=== PATIENT | female | born 1930 | race Caucasian/White ===

== ENCOUNTER 2016-10-10 13:29 | Inpatient (IN) | payer MEDICARE ==
[2016-10-10] MEDS ORDERED: NALOXONE 0.4 MG/ML 10 ML VIAL IVP STA (13:35)
[2016-10-10] MEDS ORDERED: SODIUM CHLORIDE 0.9% 500 ML IV ONE (13:36)
--- NOTE | 2016-10-10 13:40 | ED ---
General Adult HPI - General Source: EMS, RN notes reviewed Mode of arrival: EMS Limitations: altered mental status <Hang Lewis - Last Filed: 10/10/16 19:03> <Hang Smith - Last Filed: 10/10/16 21:11> - General Chief complaint: Altered Mental Status Stated complaint: unresponsive Time Seen by Provider: 10/10/16 13:29 - History of Present Illness Initial comments: This is an 85-year-old female presents to the emergency department with altered mental status. According to EMS no one could identify as to when this occurred was unable to give any history and son just stopped by to see how his parents are doing and found the mom unable to respond to them. According to the son she was recently diagnosed with shingles and put on [place] and an antiviral medication. No other history is available at this time according to EMS the patient is unable to verbally respond to any questions and does not seem to understand even the simplest commands. Patient is awake but noncommunicative. No other history is available this time no family came with the patient at this time. (Hang Lewis) - Related Data Home Medications Medication Instructions Recorded Confirmed Fluticasone/Salmeterol [Advair 1 puff INHALATION RT-BID 12/19/14 10/10/16 500-50 Diskus] Ipratropium/Albuterol Sulfate 1 puff INHALATION RT-QID PRN 12/19/14 10/10/16 [Combivent Respimat Inhaler] Levothyroxine Sodium [Synthroid] 112 mcg PO DAILY 12/19/14 10/10/16 Montelukast [Singulair] 10 mg PO HS 12/19/14 10/10/16 amLODIPine/VALSARTAN [Exforge 1 tab PO DAILY 12/19/14 10/10/16 5-160 mg Tablet] Ascorbic Acid [Vitamin C] 500 mg PO DAILY 11/07/15 10/10/16 Vit A,C & E/Lutein/Minerals 1 tab PO DAILY 11/07/15 10/10/16 [Ocuvite with Lutein Tablet] Albuterol Nebulized [Ventolin 2.5 mg INHALATION RT-BID 09/12/16 10/10/16 Nebulized] Ca/D3/Mag#11/Zinc/Dry Chain Worker/Lee/Bor 1 tab PO DAILY 09/12/16 10/10/16 [Caltrate 600+D Plus Tablet] Cyanocobalamin [Vitamin B-12] 500 mcg PO DAILY 09/12/16 10/10/16 Fluticasone Nasal [place] [Flonase 1 spray EA NOSTRIL BID PRN 09/12/16 10/10/16 Nasal [place]] [place]-3 Fatty Acids/Fish Oil [Fish 1 cap PO DAILY 09/12/16 10/10/16 Oil 1,000 mg Softgel] Acyclovir [Zovirax] 800 mg PO 5XD 10/10/16 10/10/16 HYDROcodone/APAP 5-325MG [[place] 1 tab PO Q6HR PRN 10/10/16 10/10/16 5-325] Allergies Allergy/AdvReac Type Severity Reaction Status Date / Time Milk Containing Products Allergy Unknown Verified 10/10/16 16:22 [Dairy] wheat Allergy Unknown Verified 10/10/16 16:22 Review of Systems ROS Other: All systems not noted in ROS Statement are negative. <Hang Lewis - Last Filed: 10/10/16 19:03> ROS Other: All systems not noted in ROS Statement are negative. <Hang Smith - Last Filed: 10/10/16 21:11> ROS Statement: Those systems with pertinent positive or pertinent negative responses have been documented in the HPI. (Hang Lewis) (Hang Smith) Past Medical History Past Medical History: Asthma, COPD, Eye Disorder, Hypertension, Osteoarthritis ( OA), Sleep Apnea/CPAP/BIPAP Additional Past Medical History / Comment(s): HX CATARACTS. Sinus & Allergies. NOT USING CPAP. INCREASED COUGH, CHEST CONGESTION RECENTLY. History of Any Multi-Drug Resistant Organisms: None Reported Past Surgical History: Section, Joint Replacement Additional Past Surgical History / Comment(s): C-S X3. Thyroidectomy. Damir Knee Replacements, RT hip replaced. BRONCH X2. Past Anesthesia/Blood Transfusion Reactions: Motion Sickness, Postoperative Nausea & Vomiting (PONV) Additional Past Anesthesia/Blood Transfusion Reaction / Comment(s): severe PONV Past Psychological History: No Psychological Hx Reported Smoking Status: Never smoker Past Alcohol Use History: Occasional Past Drug Use History: None Reported - Past Family History Daughter(s) Family Medical History: Cancer <Hang Lewis - Last Filed: 10/10/16 19:03> General Exam Limitations: altered mental status <Hang Lewis - Last Filed: 10/10/16 19:03> Limitations: altered mental status General appearance: obtunded, in distress, obese, other (Diaphoretic) Head exam: Present: atraumatic, normocephalic, normal inspection Eye exam: Present: normal appearance, PERRL, EOMI. Absent: scleral icterus, conjunctival injection, periorbital swelling ENT exam: Present: normal exam, mucous membranes moist Neck exam: Present: normal inspection. Absent: tenderness, meningismus, lymphadenopathy Respiratory exam: Present: normal lung sounds bilaterally, decreased breath sounds. Absent: respiratory distress, wheezes, rales, rhonchi, stridor Cardiovascular Exam: Present: regular rate, normal rhythm, tachycardia, normal heart sounds. Absent: systolic murmur, diastolic murmur, rubs, gallop, clicks GI/Abdominal exam: Present: soft, normal bowel sounds. Absent: distended, tenderness, guarding, rebound, rigid Extremities exam: Present: normal inspection, full ROM, normal capillary refill. Absent: tenderness, pedal edema, joint swelling, calf tenderness Back exam: Present: normal inspection Neurological exam: Present: alert, oriented X3, CN II-XII intact Psychiatric exam: Present: normal affect, normal mood Skin exam: Present: warm, dry, intact, normal color. Absent: rash <Hang Smith - Last Filed: 10/10/16 21:11> - General Exam Comments Initial Comments: GENERAL: Patient is well-developed and well-nourished. Patient is nontoxic and well- hydrated and patient has no verbal response and does not follow even simple verbal commands there doesn't appear to be any understanding of questions. ENT: Neck is soft and supple. No significant lymphadenopathy is noted. Oropharynx is clear. Moist mucous membranes. Neck has full range of motion without eliciting any pain. EYES: The sclera were anicteric and conjunctiva were pink and moist. Extraocular movements were intact and pupils were equal round and reactive to light. Eyelids were unremarkable. PULMONARY: Unlabored respirations. Good breath sounds bilaterally. No audible rales rhonchi or wheezing was noted. CARDIOVASCULAR: There is a regular rate and rhythm without any murmurs gallops or rubs. ABDOMEN: Soft and nontender with normal bowel sounds. No palpable organomegaly was noted. There is no palpable pulsatile mass. SKIN: Skin is clear with no lesions or rashes and otherwise unremarkable. NEUROLOGIC: Patient is is awake but not oriented. Patient has no verbal response any questions patient follows no commands. Patient does appear to move all 4 extremities and extraocular motion does appear to be intact. No further neurologic exam could be done because the patient is not cooperative MUSCULOSKELETAL: Normal extremities with adequate strength and full range of motion. LYMPHATICS: No significant lymphadenopathy is noted PSYCHIATRIC: Unable to assess (Hang Lewis) Course <Hang Lewis - Last Filed: 10/10/16 19:03> <Hang Smith - Last Filed: 10/10/16 21:11> Vital Signs 10/10/16 10/10/16 10/10/16 13:30 13:47 14:40 Temperature 98.9 F Pulse Rate 72 98 93 Respiratory 20 20 18 Rate Blood Pressure 149/73 168/91 O2 Sat by Pulse 96 98 99 Oximetry 10/10/16 10/10/16 10/10/16 16:18 16:50 17:49 Temperature Pulse Rate 94 87 114 H Respiratory 18 22 18 Rate Blood Pressure 198/105 225/90 225/90 O2 Sat by Pulse 98 98 Oximetry 10/10/16 10/10/16 10/10/16 18:02 18:32 18:57 Temperature 101.2 F H Pulse Rate 119 H 118 H Respiratory 22 20 Rate Blood Pressure 138/65 140/62 O2 Sat by Pulse 97 98 Oximetry 10/10/16 10/10/16 19:35 20:49 Temperature 104.0 F H Pulse Rate 118 H Respiratory 20 Rate Blood Pressure 150/65 O2 Sat by Pulse 98 Oximetry (Hang Lewis) (Hang Smith) - Reevaluation(s) Reevaluation #1: 10/10/16 21:08 Patient reassessed and reevaluated, temperature trending upward despite antipyretics, now 104, will place on cooling blanket Patient is attempt at LP LP was attempted unsuccessfully by myself, patient currently will be on antiviral and anti-biotics prophylactically. Continue supportive therapy Patient remains DO NOT RESUSCITATE We'll still gets MRI and morning sickness availability for possible further intracranial disease (Hang Smith) Reevaluation #2: 10/10/16 21:09 We will recheck patient's labs, admit to ICU (Hang Smith) Medical Decision Making - Lab Data Result diagrams: 10/10/16 13:45 10/10/16 13:45 <Hang Lewis - Last Filed: 10/10/16 19:03> - Lab Data Result diagrams: 10/10/16 13:45 10/10/16 13:45 - Radiology Data Radiology results: report reviewed (CT brain is negative for acute disease), image reviewed <Hang Smith - Last Filed: 10/10/16 21:11> - Medical Decision Making EKG shows normal sinus rhythm at 90 bpm. It was 204 QRS is 80 QT intervals 374 QTC is 457. Patient's EKG shows no ST segment elevation or depression or T- wave abdomen is noted CT of the brain shows no acute normalities. Chest x-ray shows no acute normalities. After the patient was in the emergency department for approximate 5-1/2 hours the patient remained tachycardic I had the nurses do a rectal temperature the patient 101.2 fever at this point time I ordered blood cultures. I examined the patient's neck was not stiff but she still remained unresponsive. Family called me and to let me know that the patient was a DO NOT RESUSCITATE (Hang Lewis) 85 female date ER for evaluation. This patient is here for evaluation of altered mental status. Patient found to be altered with elevated fever. Nonresponsiveness or decreased level of responsiveness. Patient does respond to pain but no other significant involuntary movements. Patient does have unknown cause of fever, suspected cranial disease, patient is negative CAT scan , lumbar puncture was unsuccessful at this time. Per family patient never did complain of headache. Patient is unable to give history at this time. Urine and chest x-ray negative for infection, no skin or soft tissue infection noted, CK was negative for PE. Patient will be admitted to telemetry for continued neurologic monitoring, hemodynamic monitoring (Hang Smith) - Lab Data Lab Results 10/10/16 10/10/16 10/10/16 Range/Units 13:33 13:45 13:45 WBC 7.6 (3.8-10.6) k/uL RBC 4.52 (3.80-5.40) m/uL Hgb 13.2 (11.4-16.0) gm/dL Hct 39.3 (34.0-46.0) % MCV 86.8 (80.0-100.0) fL MCH 29.2 (25.0-35.0) pg MCHC 33.6 (31.0-37.0) g/dL RDW 13.2 (11.5-15.5) % Plt Count 193 (150-450) k/uL Neutrophils % 80 % Lymphocytes % 12 % Monocytes % 6 % Eosinophils % 0 % Basophils % 0 % Neutrophils # 6.0 (1.3-7.7) k/uL Lymphocytes # 0.9 L (1.0-4.8) k/uL Monocytes # 0.5 (0-1.0) k/uL Eosinophils # 0.0 (0-0.7) k/uL Basophils # 0.0 (0-0.2) k/uL PT (9.0-12.0) sec INR (<1.1) APTT (22.0-30.0) sec D-Dimer (<0.60) mg/L FEU Sample Site ABG pH (7.35-7.45) ABG pCO2 (35-45) mmHg ABG pO2 (83-108) mmHg ABG HCO3 (21-25) mmol/L ABG Total CO2 (19-24) mmol/L ABG O2 Saturation (94-97) % ABG Base Excess mmol/L FiO2 % Sodium (137-145) mmol/L Potassium (3.5-5.1) mmol/L Chloride (98-107) mmol/L Carbon Dioxide (22-30) mmol/L Anion Gap mmol/L BUN (7-17) mg/dL Creatinine (0.52-1.04) mg/dL Est GFR (MDRD) Af Amer (>60 ml/min/1.73 sqM) Est GFR (MDRD) Non-Af (>60 ml/min/1.73 sqM) Glucose (74-99) mg/dL POC Glucose (mg/dL) 129 H (75-99) mg/dL POC Glu Soaker Soda Worker ID BranchJose Calcium (8.4-10.2) mg/dL Total Bilirubin (0.2-1.3) mg/dL AST (14-36) U/L ALT (9-52) U/L Alkaline Phosphatase (38-126) U/L Total Creatine Kinase 85 (30-135) U/L CK-MB (CK-2) 1.9 (0.0-2.4) ng/mL CK-MB (CK-2) Rel Index 2.2 Troponin I <0.012 (0.000-0.034) ng/mL Total Protein (6.3-8.2) g/dL Albumin (3.5-5.0) g/dL Urine Color Urine Appearance (Clear) Urine pH (5.0-8.0) Ur Specific [place] (1.001-1.035) Urine Protein (Negative) Urine Glucose (UA) (Negative) Urine Ketones (Negative) Urine Blood (Negative) Urine Nitrate (Negative) Urine Bilirubin (Negative) Urine Urobilinogen (<2.0) mg/dL Ur Leukocyte Esterase (Negative) Urine WBC (0-5) /hpf Ur Squamous Epith Cells (0-4) /hpf Urine Mucus (None) /hpf Salicylates mg/dL Urine Opiates Screen (NotDetected) Ur Oxycodone Screen (NotDetected) Urine Methadone Screen (NotDetected) Ur Propoxyphene Screen (NotDetected) Acetaminophen ug/mL Ur Barbiturates Screen (NotDetected) U Tricyclic Antidepress (NotDetected) Ur Phencyclidine Scrn (NotDetected) Ur Amphetamines Screen (NotDetected) U Methamphetamines Scrn (NotDetected) U Benzodiazepines Scrn (NotDetected) Urine Cocaine Screen (NotDetected) U Marijuana (THC) Screen (NotDetected) 10/10/16 10/10/16 10/10/16 Range/Units 13:45 13:45 13:45 WBC (3.8-10.6) k/uL RBC (3.80-5.40) m/uL Hgb (11.4-16.0) gm/dL Hct (34.0-46.0) % MCV (80.0-100.0) fL MCH (25.0-35.0) pg MCHC (31.0-37.0) g/dL RDW (11.5-15.5) % Plt Count (150-450) k/uL Neutrophils % % Lymphocytes % % Monocytes % % Eosinophils % % Basophils % % Neutrophils # (1.3-7.7) k/uL Lymphocytes # (1.0-4.8) k/uL Monocytes # (0-1.0) k/uL Eosinophils # (0-0.7) k/uL Basophils # (0-0.2) k/uL PT 10.8 (9.0-12.0) sec INR 1.1 (<1.1) APTT 27.9 (22.0-30.0) sec D-Dimer (<0.60) mg/L FEU Sample Site ABG pH (7.35-7.45) ABG pCO2 (35-45) mmHg ABG pO2 (83-108) mmHg ABG HCO3 (21-25) mmol/L ABG Total CO2 (19-24) mmol/L ABG O2 Saturation (94-97) % ABG Base Excess mmol/L FiO2 % Sodium 122 L (137-145) mmol/L Potassium 3.7 (3.5-5.1) mmol/L Chloride 89 L (98-107) mmol/L Carbon Dioxide 23 (22-30) mmol/L Anion Gap 10 mmol/L BUN 9 (7-17) mg/dL Creatinine 0.50 L (0.52-1.04) mg/dL Est GFR (MDRD) Af Amer >60 (>60 ml/min/1.73 sqM) Est GFR (MDRD) Non-Af >60 (>60 ml/min/1.73 sqM) Glucose 123 H (74-99) mg/dL POC Glucose (mg/dL) (75-99) mg/dL POC Glu Soaker Soda Worker ID Calcium 8.4 (8.4-10.2) mg/dL Total Bilirubin 0.6 (0.2-1.3) mg/dL AST 29 (14-36) U/L ALT 29 (9-52) U/L Alkaline Phosphatase 69 (38-126) U/L Total Creatine Kinase (30-135) U/L CK-MB (CK-2) (0.0-2.4) ng/mL CK-MB (CK-2) Rel Index Troponin I (0.000-0.034) ng/mL Total Protein 7.4 (6.3-8.2) g/dL Albumin 4.1 (3.5-5.0) g/dL Urine Color Urine Appearance (Clear) Urine pH (5.0-8.0) Ur Specific [place] (1.001-1.035) Urine Protein (Negative) Urine Glucose (UA) (Negative) Urine Ketones (Negative) Urine Blood (Negative) Urine Nitrate (Negative) Urine Bilirubin (Negative) Urine Urobilinogen (<2.0) mg/dL Ur Leukocyte Esterase (Negative) Urine WBC (0-5) /hpf Ur Squamous Epith Cells (0-4) /hpf Urine Mucus (None) /hpf Salicylates mg/dL Urine Opiates Screen Detected H (NotDetected) Ur Oxycodone Screen Not Detected (NotDetected) Urine Methadone Screen Not Detected (NotDetected) Ur Propoxyphene Screen Not Detected (NotDetected) Acetaminophen ug/mL Ur Barbiturates Screen Not Detected (NotDetected) U Tricyclic Antidepress Not Detected (NotDetected) Ur Phencyclidine Scrn Not Detected (NotDetected) Ur Amphetamines Screen Not Detected (NotDetected) U Methamphetamines Scrn Not Detected (NotDetected) U Benzodiazepines Scrn Not Detected (NotDetected) Urine Cocaine Screen Not Detected (NotDetected) U Marijuana (THC) Screen Not Detected (NotDetected) 10/10/16 10/10/16 10/10/16 Range/Units 13:45 13:45 13:45 WBC (3.8-10.6) k/uL RBC (3.80-5.40) m/uL Hgb (11.4-16.0) gm/dL Hct (34.0-46.0) % MCV (80.0-100.0) fL MCH (25.0-35.0) pg MCHC (31.0-37.0) g/dL RDW (11.5-15.5) % Plt Count (150-450) k/uL Neutrophils % % Lymphocytes % % Monocytes % % Eosinophils % % Basophils % % Neutrophils # (1.3-7.7) k/uL Lymphocytes # (1.0-4.8) k/uL Monocytes # (0-1.0) k/uL Eosinophils # (0-0.7) k/uL Basophils # (0-0.2) k/uL PT (9.0-12.0) sec INR (<1.1) APTT (22.0-30.0) sec D-Dimer 1.29 H (<0.60) mg/L FEU Sample Site ABG pH (7.35-7.45) ABG pCO2 (35-45) mmHg ABG pO2 (83-108) mmHg ABG HCO3 (21-25) mmol/L ABG Total CO2 (19-24) mmol/L ABG O2 Saturation (94-97) % ABG Base Excess mmol/L FiO2 % Sodium (137-145) mmol/L Potassium (3.5-5.1) mmol/L Chloride (98-107) mmol/L Carbon Dioxide (22-30) mmol/L Anion Gap mmol/L BUN (7-17) mg/dL Creatinine (0.52-1.04) mg/dL Est GFR (MDRD) Af Amer (>60 ml/min/1.73 sqM) Est GFR (MDRD) Non-Af (>60 ml/min/1.73 sqM) Glucose (74-99) mg/dL POC Glucose (mg/dL) (75-99) mg/dL POC Glu Soaker Soda Worker ID Calcium (8.4-10.2) mg/dL Total Bilirubin (0.2-1.3) mg/dL AST (14-36) U/L ALT (9-52) U/L Alkaline Phosphatase (38-126) U/L Total Creatine Kinase (30-135) U/L CK-MB (CK-2) (0.0-2.4) ng/mL CK-MB (CK-2) Rel Index Troponin I (0.000-0.034) ng/mL Total Protein (6.3-8.2) g/dL Albumin (3.5-5.0) g/dL Urine Color Yellow Urine Appearance Clear (Clear) Urine pH 7.0 (5.0-8.0) Ur Specific [place] 1.013 (1.001-1.035) Urine Protein 2+ H (Negative) Urine Glucose (UA) Negative (Negative) Urine Ketones 2+ H (Negative) Urine Blood Negative (Negative) Urine Nitrate Negative (Negative) Urine Bilirubin Negative (Negative) Urine Urobilinogen <2.0 (<2.0) mg/dL Ur Leukocyte Esterase Negative (Negative) Urine WBC 1 (0-5) /hpf Ur Squamous Epith Cells <1 (0-4) /hpf Urine Mucus Rare H (None) /hpf Salicylates <1.0 mg/dL Urine Opiates Screen (NotDetected) Ur Oxycodone Screen (NotDetected) Urine Methadone Screen (NotDetected) Ur Propoxyphene Screen (NotDetected) Acetaminophen <10.0 ug/mL Ur Barbiturates Screen (NotDetected) U Tricyclic Antidepress (NotDetected) Ur Phencyclidine Scrn (NotDetected) Ur Amphetamines Screen (NotDetected) U Methamphetamines Scrn (NotDetected) U Benzodiazepines Scrn (NotDetected) Urine Cocaine Screen (NotDetected) U Marijuana (THC) Screen (NotDetected) 10/10/16 Range/Units 17:01 WBC (3.8-10.6) k/uL RBC (3.80-5.40) m/uL Hgb (11.4-16.0) gm/dL Hct (34.0-46.0) % MCV (80.0-100.0) fL MCH (25.0-35.0) pg MCHC (31.0-37.0) g/dL RDW (11.5-15.5) % Plt Count (150-450) k/uL Neutrophils % % Lymphocytes % % Monocytes % % Eosinophils % % Basophils % % Neutrophils # (1.3-7.7) k/uL Lymphocytes # (1.0-4.8) k/uL Monocytes # (0-1.0) k/uL Eosinophils # (0-0.7) k/uL Basophils # (0-0.2) k/uL PT (9.0-12.0) sec INR (<1.1) APTT (22.0-30.0) sec D-Dimer (<0.60) mg/L FEU Sample Site RRAD ABG pH 7.51 H (7.35-7.45) ABG pCO2 22 L (35-45) mmHg ABG pO2 103 (83-108) mmHg ABG HCO3 18 L (21-25) mmol/L ABG Total CO2 18 L (19-24) mmol/L ABG O2 Saturation 99.0 H (94-97) % ABG Base Excess -4.9 mmol/L FiO2 28 % Sodium (137-145) mmol/L Potassium (3.5-5.1) mmol/L Chloride (98-107) mmol/L Carbon Dioxide (22-30) mmol/L Anion Gap mmol/L BUN (7-17) mg/dL Creatinine (0.52-1.04) mg/dL Est GFR (MDRD) Af Amer (>60 ml/min/1.73 sqM) Est GFR (MDRD) Non-Af (>60 ml/min/1.73 sqM) Glucose (74-99) mg/dL POC Glucose (mg/dL) (75-99) mg/dL POC Glu Soaker Soda Worker ID Calcium (8.4-10.2) mg/dL Total Bilirubin (0.2-1.3) mg/dL AST (14-36) U/L ALT (9-52) U/L Alkaline Phosphatase (38-126) U/L Total Creatine Kinase (30-135) U/L CK-MB (CK-2) (0.0-2.4) ng/mL CK-MB (CK-2) Rel Index Troponin I (0.000-0.034) ng/mL Total Protein (6.3-8.2) g/dL Albumin (3.5-5.0) g/dL Urine Color Urine Appearance (Clear) Urine pH (5.0-8.0) Ur Specific [place] (1.001-1.035) Urine Protein (Negative) Urine Glucose (UA) (Negative) Urine Ketones (Negative) Urine Blood (Negative) Urine Nitrate (Negative) Urine Bilirubin (Negative) Urine Urobilinogen (<2.0) mg/dL Ur Leukocyte Esterase (Negative) Urine WBC (0-5) /hpf Ur Squamous Epith Cells (0-4) /hpf Urine Mucus (None) /hpf Salicylates mg/dL Urine Opiates Screen (NotDetected) Ur Oxycodone Screen (NotDetected) Urine Methadone Screen (NotDetected) Ur Propoxyphene Screen (NotDetected) Acetaminophen ug/mL Ur Barbiturates Screen (NotDetected) U Tricyclic Antidepress (NotDetected) Ur Phencyclidine Scrn (NotDetected) Ur Amphetamines Screen (NotDetected) U Methamphetamines Scrn (NotDetected) U Benzodiazepines Scrn (NotDetected) Urine Cocaine Screen (NotDetected) U Marijuana (THC) Screen (NotDetected) (Hang Smith) Critical Care Time Critical Care Time: Yes Total Critical Care Time: 65 <Hang Smith - Last Filed: 10/10/16 21:11> Disposition <Hang Lewis - Last Filed: 10/10/16 19:03> <Hang Smith - Last Filed: 10/10/16 21:11> Clinical Impression: Altered mental status, Fever, Delirium due to general medical condition, Hyponatremia Disposition: [facility] Condition: Critical Referrals: Hipolito Wallace MD [Primary Care Provider] - 1-2 days
[2016-10-10 13:57] LABS: Basophils % (A) 0 %; CH 31.3; CHCM 36.2; Eosinophils % (A) 0 %; HCT 39.3 % (34.0-46.0); HDW 2.36; HGB 13.2 gm/dL (11.4-16.0); Luc # (Auto) 0.08; Luc % (Auto) 1; Lymphocytes # (A) 0.9 k/uL (1.0-4.8); Lymphocytes % (A) 12 %; MCH 29.2 pg (25.0-35.0); MCHC 33.6 g/dL (31.0-37.0); MCV 86.8 fL (80.0-100.0); Mean Platelet Volume 10.3; Monocytes # (A) 0.5 k/uL (0-1.0); Monocytes % (A) 6 %; Neutrophils % (A) 80 %; RBC 4.52 m/uL (3.80-5.40); RDW 13.2 % (11.5-15.5); WBC 7.6 k/uL (3.8-10.6); WBC (Perox) 8.16
[2016-10-10 14:11] LABS: INR 1.1 (<1.1); Partial Thromboplastin Time 27.9 sec (22.0-30.0); Prothrombin Time 10.8 sec (9.0-12.0)
[2016-10-10 14:12] LABS: Anion Gap 10 mmol/L; Blood Urea Nitrogen 9 mg/dL (7-17); Calcium 8.4 mg/dL (8.4-10.2); Carbon Dioxide 23 mmol/L (22-30); Chloride 89 mmol/L (98-107); Glucose 123 mg/dL (74-99); Non-African American GFR(MDRD) >60 (>60 ml/min/1.73 sqM); Potassium 3.7 mmol/L (3.5-5.1); Sodium 122 mmol/L (137-145); Total Protein 7.4 g/dL (6.3-8.2)
[2016-10-10 14:15] LABS: ALT 29 U/L (9-52); AST 29 U/L (14-36); Alkaline Phosphatase 69 U/L (38-126); Total Bilirubin 0.6 mg/dL (0.2-1.3)
[2016-10-10 14:23] LABS: Creatine Kinase 85 U/L (30-135)
--- NOTE | 2016-10-10 14:25 | CT ---
EXAMINATION TYPE: CT brain wo con DATE OF EXAM: 10/10/2016 2:10 PM COMPARISON: NONE INDICATION: Patient is agitated, moving and not responding to verbal commands DLP: 2213.2 mGycm, Automated exposure control for dose reduction was used. CONTRAST: None CT of the brain is performed utilizing 3 mm thick sections through the posterior fossa and 3 mm thick sections through the remaining calvarium. Study is performed within 24 hours of arrival to the hosp ital. No abnormal hyperdensity is present to suggest an acute intracranial hemorrhage. No mass lesion is evident. No acute infarcts are evident. Periventricular chronic appearing white matter ischemic changes are pr esent Ventricles and sulci are mildly prominent for the patient age. Paranasal sinuses and mastoid air cells within the [id number] are clear. IMPRESSIONS: 1. Periventricular white matter ischemic type changes with age-related atrophy.
[2016-10-10 14:36] LABS: Creatine Kinase MB 1.9 ng/mL (0.0-2.4); Troponin I <0.012 ng/mL (0.000-0.034)
[2016-10-10 14:54] LABS: Appearance,Urine Clear (Clear); Bilirubin,Urine Negative (Negative); Glucose,Urine (UA) Negative (Negative); Ketones,Urine 2+ (Negative); Leukocyte Esterase,Urine Negative (Negative); Mucus,Urine Rare /hpf; Nitrite,Urine Negative (Negative); Particle Count 1676; Protein,Urine 2+ (Negative); Specific Gravity,Urine 1.013 (1.001-1.035); Squamous Epithelial Cell,Urine <1 /hpf (0-4); UA Billing (MACRO vs. MICRO) MICRO; Urobilinogen,Urine <2.0 mg/dL (<2.0); WBC,Urine 1 /hpf (0-5)
[2016-10-10 15:24] LABS: Glucose,Whole Blood 129 mg/dL (75-99)
--- NOTE | 2016-10-10 15:54 | XR ---
EXAMINATION TYPE: XR chest 1V DATE OF EXAM: 10/10/2016 3:43 PM COMPARISON: 09/12/2016 HISTORY: 85 year-old female altered mental status, unable to follow directions TECHNIQUE: Single frontal supine view of the chest is obtained. FINDINGS: Heart is borderline to mildly enlarged. Diffuse interstitial prominence similar to prior. Some hazy d ensity at the left base could represent a trace layering effusion. No tk consolidation seen. IMPRESSION: Borderline cardiomegaly and chronic changes. There may be a trace left pleural effusion.
[2016-10-10] MEDS ORDERED: hydrALAZINE HCL 20 MG/ML 1 ML VIAL IVP STA ×2 (16:10→17:16)
[2016-10-10] MEDS ORDERED: RX INFO: IV CONTRAST WAS GIVEN 1 EACH MISC MISCELLANE PRN (17:20)
[2016-10-10] MEDS ORDERED: HYDROmorphone 1 MG/ML 1 ML SYRINGE IVP STA (17:46)
[2016-10-10] MEDS ORDERED: ONDANSETRON 4 MG/2 ML VIAL IVP STA (17:46)
[2016-10-10 17:56] LABS: ABG PCO2 22 mmHg (35-45); ABG PH 7.51 (7.35-7.45)
[2016-10-10 17:57] LABS: ABG Base Excess -4.9 mmol/L; ABG HCO3 18 mmol/L (21-25); ABG PO2 103 mmHg (83-108); ABG TCO2 18 mmol/L (19-24)
--- NOTE | 2016-10-10 18:42 | CT ---
EXAMINATION TYPE: CT chest angio for PE DATE OF EXAM: 10/10/2016 6:13 PM COMPARISON: NONE HISTORY: Unrespsonive. CT DLP: 557 mGycm Automated exposure control for dose reduction was used. CONTRAST: CT Chest for pulmonary embolism performed with with IV Contrast, patient injected with 80 mL of Omnip aque 350. FINDINGS: There are 3-D post processed images. There is normal contrast opacification of the thoracic aorta. There is no evidence of dissection. Asc ending aorta measures 3.7 cm. There is coronary artery calcification. There is no pericardial effusio n. There is a hiatal hernia. I see no filling defects in the pulmonary arteries. There is no evidence of a pulmonary mass. There i s some mild atelectasis at the left lung base. There is no pleural effusion. There is no mediastinal adenopathy. IMPRESSION: No evidence of pulmonary embolism. Atherosclerotic vascular disease. Mild ectasia of the ascending ao rta that measures 3.7 cm. Minimal atelectasis at the left lung base. Hiatal hernia.
[2016-10-10] MEDS ORDERED: ACETAMINOPHEN IV (For NPO) 1,000 MG in SALINE 100 100ML.BAG IVPB STA (18:57)
[2016-10-10] MEDS ORDERED: IBUPROFEN IV 600 MG in SODIUM CHLORIDE 0.9% 250 ML IV STA (18:57)
[2016-10-10] MEDS ORDERED: cefTRIAXone 2,000 MG in SODIUM CHLORIDE 0.9% 100 ML IVPB STA (19:33)
[2016-10-10] MEDS ORDERED: IV VANCOMYCIN PER PHARMACY 1 EACH MISC MISCELLANE PRN ×2 (19:33→21:11)
[2016-10-10] MEDS ORDERED: SODIUM CHLORIDE 0.9% 500 ML IV STA (19:34)
[2016-10-10] MEDS ORDERED: SODIUM CHLORIDE 0.9% 1,000 ML IV STA ×2 (19:34)
[2016-10-10] MEDS ORDERED: VANCOMYCIN 1,250 MG in SODIUM CHLORIDE 0.9% 250 ML IVPB STA (19:37)
[2016-10-10 20:05] LABS: Acetaminophen <10.0 ug/mL; Salicylate <1.0 mg/dL
[2016-10-10] MEDS ORDERED: ACETAMINOPHEN IV (For NPO) 1,000 MG in EMPTY BAG 1 BAG IVPB PRN (21:14)
[2016-10-10 21:27] LABS: Basophils % (A) 0 %; CH 31.1; CHCM 35.1; Eosinophils % (A) 0 %; HCT 38.1 % (34.0-46.0); HDW 2.35; HGB 12.5 gm/dL (11.4-16.0); Luc # (Auto) 0.12; Luc % (Auto) 1; Lymphocytes # (A) 0.7 k/uL (1.0-4.8); Lymphocytes % (A) 6 %; MCH 29.1 pg (25.0-35.0); MCHC 32.7 g/dL (31.0-37.0); MCV 88.9 fL (80.0-100.0); Mean Platelet Volume 9.5; Monocytes # (A) 0.6 k/uL (0-1.0); Monocytes % (A) 5 %; Neutrophils # (A) 10.9 k/uL (1.3-7.7); Neutrophils % (A) 88 %; RBC 4.28 m/uL (3.80-5.40); RDW 13.7 % (11.5-15.5); WBC 12.4 k/uL (3.8-10.6); WBC (Perox) 13.62
[2016-10-10 21:28] LABS: VBG PH 7.37 (7.31-7.41)
[2016-10-10 21:36] LABS: INR 1.1 (<1.1); Partial Thromboplastin Time 25.3 sec (22.0-30.0); Prothrombin Time 11.1 sec (9.0-12.0)
[2016-10-10 21:38] LABS: ALT 31 U/L (9-52); AST 31 U/L (14-36); Alkaline Phosphatase 55 U/L (38-126); Anion Gap 11 mmol/L; Blood Urea Nitrogen 11 mg/dL (7-17); Calcium 7.7 mg/dL (8.4-10.2); Carbon Dioxide 18 mmol/L (22-30); Chloride 94 mmol/L (98-107); Glucose 139 mg/dL (74-99); Magnesium 1.5 mg/dL (1.6-2.3); Non-African American GFR(MDRD) >60 (>60 ml/min/1.73 sqM); Phosphorous 2.8 mg/dL (2.5-4.5); Potassium 4.4 mmol/L (3.5-5.1); Sodium 123 mmol/L (137-145); Total Bilirubin 0.5 mg/dL (0.2-1.3); Total Protein 6.7 g/dL (6.3-8.2)
[2016-10-10 21:57] LABS: Creatine Kinase MB 2.4 ng/mL (0.0-2.4)
[2016-10-10 22:03] LABS: Troponin I 0.052 ng/mL (0.000-0.034)
[2016-10-10] MEDS: SODIUM CHLORIDE 0.9% 1,000 ML IV SCH (22:25)
[2016-10-10 22:31] LABS: Glucose,Whole Blood 123 mg/dL (75-99)
[2016-10-11] MEDS: SODIUM CHLORIDE 0.9% IV SCH ×3 (00:31→16:04)
[2016-10-11] MEDS: ACYCLOVIR SODIUM IV SCH ×3 (00:31→16:04)
[2016-10-11 01:17] VITALS: BMI 31.4
[2016-10-11] MEDS ORDERED: NALOXONE 0.4 MG/ML 1 ML VIAL IV PRN (02:42)
[2016-10-11] MEDS ORDERED: Magnesium Replacement Protocol 1 EACH MISC MISCELLANE PRN (02:46)
[2016-10-11] MEDS ORDERED: HYDROmorphone 1 MG/ML 1 ML SYRINGE IVP PRN (02:47)
[2016-10-11] MEDS ORDERED: LORazepam 2 MG/ML SYRINGE IV PRN ×2 (02:47)
[2016-10-11] MEDS ORDERED: hydrALAZINE HCL 20 MG/ML 1 ML VIAL IVP PRN (02:47)
[2016-10-11] MEDS ORDERED: IPRATROPIUM 0.5 MG/2.5 ML NEBU INHALATION PRN ×2 (02:47→02:54)
[2016-10-11] MEDS ORDERED: LEVALBUTEROL NEB (CONC) 1.25 MG/0.5 ML AMP INHALATION PRN (02:52)
[2016-10-11 03:18] LABS: Creatine Kinase MB 6.1 ng/mL (0.0-2.4); Troponin I 0.119 ng/mL (0.000-0.034)
[2016-10-11] MEDS: MAGNESIUM SULFATE-D5W PMX 1 GM in DEXTROSE/WATER 1 100ML.BAG IVPB SCH ×2 (04:25→05:25)
[2016-10-11 04:29] LABS: Glucose,Whole Blood 116 mg/dL (75-99)
[2016-10-11] MEDS ORDERED: MIDAZOLAM 2 MG/2 ML VIAL ONE (06:16)
[2016-10-11] MEDS ORDERED: HYDROmorphone 1 MG/ML 1 ML SYRINGE IVP STA (06:20)
[2016-10-11] MEDS ORDERED: MIDAZOLAM 2 MG/2 ML VIAL IV ONE (06:24)
--- NOTE | 2016-10-11 06:57 | P.CON ---
Consult Note - . Assessment/Plan:: diagnostic lumbar puncture performed at lumbar three-four level with sterile precautions; lidocaine infiltration of the skin performed; clear csf obtained; patient tolerated the procedure well; verse and dilaudid given for sedation; diagnosis rule out meningitis
[2016-10-11 07:25] LABS: Anion Gap 8 mmol/L; Blood Urea Nitrogen 10 mg/dL (7-17); Calcium 7.1 mg/dL (8.4-10.2); Carbon Dioxide 19 mmol/L (22-30); Chloride 100 mmol/L (98-107); Glucose 125 mg/dL (74-99); Non-African American GFR(MDRD) >60 (>60 ml/min/1.73 sqM); Phosphorous 2.6 mg/dL (2.5-4.5); Potassium 3.8 mmol/L (3.5-5.1); Sodium 127 mmol/L (137-145)
[2016-10-11 07:30] LABS: Basophils % (A) 0 %; CH 30.1; CHCM 33.6; Eosinophils % (A) 0 %; HCT 34.3 % (34.0-46.0); HDW 2.26; HGB 11.3 gm/dL (11.4-16.0); Luc # (Auto) 0.28; Luc % (Auto) 3; Lymphocytes # (A) 1.1 k/uL (1.0-4.8); Lymphocytes % (A) 11 %; MCH 29.8 pg (25.0-35.0); MCHC 33.1 g/dL (31.0-37.0); Monocytes % (A) 10 %; Neutrophils # (A) 7.7 k/uL (1.3-7.7); Neutrophils % (A) 76 %; RBC 3.81 m/uL (3.80-5.40); RDW 13.7 % (11.5-15.5); WBC 10.1 k/uL (3.8-10.6); WBC (Perox) 11.12
[2016-10-11 07:56] LABS: Glucose,CSF 80 mg/dL (40-70)
[2016-10-11] MEDS ORDERED: IPRATROPIUM 0.5 MG/2.5 ML NEBU INHALATION SCH (08:00)
[2016-10-11 08:24] LABS: Appearance,CSF Clear; Red Blood Cell, CSF Crenated 2 %; Red Blood Cell, CSF Fresh 98 %
[2016-10-11] MEDS: SODIUM CHLORIDE 0.9% 1,000 ML IV SCH (08:57)
[2016-10-11] MEDS ORDERED: cefTRIAXone 2,000 MG in SODIUM CHLORIDE 0.9% 100 ML IVPB SCH (09:00)
[2016-10-11] MEDS: LEVALBUTEROL NEB (CONC) 1.25 MG/0.5 ML AMP INHALATION SCH ×3 (09:26→19:45)
[2016-10-11] MEDS: IPRATROPIUM 0.5 MG/2.5 ML NEBU INHALATION SCH ×3 (09:27→19:45)
[2016-10-11] MEDS: VANCOMYCIN 1,250 MG in SODIUM CHLORIDE 0.9% 250 ML IVPB SCH (09:52)
[2016-10-11 09:53] LABS: Creatine Kinase MB 9.5 ng/mL (0.0-2.4); Troponin I 0.069 ng/mL (0.000-0.034)
[2016-10-11] MEDS: LEVOTHYROXINE IVP 100 MCG/5 ML VIAL IV SCH (09:59)
[2016-10-11] MEDS: PANTOPRAZOLE 40 MG/10 ML VIAL IV SCH (10:02)
[2016-10-11] MEDS ORDERED: ONDANSETRON 4 MG/2 ML VIAL IVP PRN (11:02)
--- NOTE | 2016-10-11 12:00 | MR ---
EXAMINATION TYPE: MR brain wo/w con DATE OF EXAM: 10/11/2016 11:43 AM COMPARISON: CT brain from yesterday. HISTORY: Altered mental status TECHNIQUE: Multiplanar, multisequence images of the brain and brainstem is performed without and with IV contras t, utilizing 15 mL intravenous MultiHance . FINDINGS: Exam is suboptimal due to patient motion related to underlying confusion. Diffusion weighte d images demonstrate no evidence of a recent infarct or other diffusion abnormality. There is no wor risome extra-axial fluid collections. There is ventricular and sulcal prominence consistent with diff use cerebral atrophy. There are focal areas of T2 hyperintensity seen throughout the deep and periven tricular white matter. Lesions are presumed on basis of product of chronic small vessel ischemic culver ge in patient this age. Midline structures demonstrate normal morphology. The craniocervical junction appears within normal limits. Post contrast images demonstrate no abnormal enhancement. The dural venous sinuses appear pa tent. The visualized sinuses are clear and the globes are intact. IMPRESSION: 1. No convincing evidence of a clinically significant acute infarct. 2. Redemonstration of mild to moderate diffuse cerebral atrophy and moderate chronic small vessel isc hemic change.
--- NOTE | 2016-10-11 12:46 | P.CNPUL ---
History of Present Illness Consult date: 10/11/16 Requesting physician: Catalina Nava Reason for consult: other (ICU management) Chief complaint: Altered mental status and fever History of present illness: This is an 85-year-old female with history of multiple medical problems including essential hypertension, COPD, degenerative joint disease, obstructive sleep apnea syndrome, patient was brought into the emergency room by EMS because of her family concern. Apparently the son stopped by to see his parents and he noted that his mom was unable to respond to him. She was recently diagnosed as having shingles involving her left chest area and she was placed on acyclovir, she was also on [place]. At any rate the patient was evaluated in the ER, she was definitely confused, noncommunicative, and she had elevated temp, but she had a relatively normal CBC, she had a low sodium of 122. There was a definite concern about the possibility of viral encephalitis specially with her most recent history of herpes zoster infection. The ER physician attempted to perform a lumbar puncture, however he was not successful. Patient was then admitted to the hospital placed on empiric treatment for viral and bacterial encephalitis/meningitis, infectious disease consultation was initiated, and I was asked to see the patient on consultation since she was admitted to the ICU. Upon my evaluation, patient was noted to be quite responsive, oriented to place, but not to time and year. Her sodium corrected a bit from 122 up to 127. She had no evidence of anion gap, and her lactic acidosis was 2.0 on admission, and corrected down to 0.9 overnight. Workup in the ER included a CT of the chest which was negative for pulmonary embolism. Chest x-ray which was normal. Brain CT which was also normal. MRI of the brain was also done and there was no convincing evidence of acute infarct , or any suggestion of encephalitis/meningitis. I reviewed the results of her spinal fluid, and it seemed to be relatively normal except for slightly elevated protein otherwise the spinal fluid was clear. Hence I have made arrangements for the patient to be transferred out of the ICU and infectious disease to follow. In the meantime we'll continue to correct her hyponatremia which seems to be most likely hypovolemic in nature. Review of Systems ROS unobtainable: due to mental status Past Medical History Past Medical History: Asthma, COPD, Eye Disorder, Hypertension, Osteoarthritis ( OA), Sleep Apnea/CPAP/BIPAP Additional Past Medical History / Comment(s): HX CATARACTS (removed), macular degeneration. Sinus & Allergies. uses while in bed but gets up niughtly d/t pain in knees & hips and sleps in recliner w/out. INCREASED COUGH, CHEST CONGESTION RECENTLY. History of Any Multi-Drug Resistant Organisms: None Reported Past Surgical History: Section, Joint Replacement Additional Past Surgical History / Comment(s): X3. Thyroidectomy. Damir Knee Replacements, RT hip replaced. BRONCH X2. Past Anesthesia/Blood Transfusion Reactions: Motion Sickness, Postoperative Nausea & Vomiting (PONV) Additional Past Anesthesia/Blood Transfusion Reaction / Comment(s): severe PONV Past Psychological History: No Psychological Hx Reported Smoking Status: Never smoker Past Alcohol Use History: Occasional Additional Past Alcohol Use History / Comment(s): about 1 glass of wine per month Past Drug Use History: None Reported - Past Family History Daughter(s) Family Medical History: Cancer Additional Family Medical History / Comment(s): uterine Mother Family Medical History: Hypertension, Osteoarthritis (OA) Additional Family Medical History / Comment(s): of multiple myeloma at 73 Father Family Medical History: Cancer Additional Family Medical History / Comment(s): of lung ca, mesothelioma d/ t asbestos Medications and Allergies Home Medications Medication Instructions Recorded Confirmed Type Fluticasone/Salmeterol [Advair 1 puff INHALATION RT-BID 12/19/14 10/10/16 History 500-50 Diskus] Ipratropium/Albuterol Sulfate 1 puff INHALATION RT-QID PRN 12/19/14 10/10/16 History [Combivent Respimat Inhaler] Levothyroxine Sodium [Synthroid] 112 mcg PO DAILY 12/19/14 10/10/16 History Montelukast [Singulair] 10 mg PO HS 12/19/14 10/10/16 History amLODIPine/VALSARTAN [Exforge 1 tab PO DAILY 12/19/14 10/10/16 History 5-160 mg Tablet] Ascorbic Acid [Vitamin C] 500 mg PO DAILY 11/07/15 10/10/16 History Vit A,C & E/Lutein/Minerals 1 tab PO DAILY 11/07/15 10/10/16 History [Ocuvite with Lutein Tablet] Albuterol Nebulized [Ventolin 2.5 mg INHALATION RT-BID 09/12/16 10/10/16 History Nebulized] Ca/D3/Mag#11/Zinc/Bulb Weeder/Lee/Bor 1 tab PO DAILY 09/12/16 10/10/16 History [Caltrate 600+D Plus Tablet] Cyanocobalamin [Vitamin B-12] 500 mcg PO DAILY 09/12/16 10/10/16 History Fluticasone Nasal [place] [Flonase 1 spray EA NOSTRIL BID PRN 09/12/16 10/10/16 History Nasal [place]] [place]-3 Fatty Acids/Fish Oil [Fish 1 cap PO DAILY 09/12/16 10/10/16 History Oil 1,000 mg Softgel] Acyclovir [Zovirax] 800 mg PO 5XD 10/10/16 10/10/16 History HYDROcodone/APAP 5-325MG [[place] 1 tab PO Q6HR PRN 10/10/16 10/10/16 History 5-325] Allergies Allergy/AdvReac Type Severity Reaction Status Date / Time cat dander Allergy Congestion Verified 10/11/16 01:21 dog dander Allergy Congestion Verified 10/11/16 01:21 Milk Containing Products Allergy Unknown Verified 10/10/16 16:22 [Dairy] shellfish derived [Shrimp] Allergy Rash/Hives Verified 10/11/16 01:21 wheat Allergy Unknown Verified 10/10/16 16:22 Physical Exam Vitals: Vital Signs Temp Pulse Resp BP Pulse Ox 10/11/16 12:00 80 18 152/73 98 10/11/16 11:30 152/73 10/11/16 11:00 97 21 96/59 97 10/11/16 10:30 79 24 96/59 97 10/11/16 10:00 70 17 136/57 96 10/11/16 09:41 73 10/11/16 09:30 74 14 136/57 94 L 10/11/16 09:27 71 10/11/16 09:00 71 15 127/61 94 L 10/11/16 08:30 73 8 L 127/61 97 10/11/16 08:00 78 9 L 110/61 94 L 10/11/16 07:30 77 12 84/53 97 10/11/16 07:00 74 11 L 129/79 95 10/11/16 06:00 81 13 144/67 97 10/11/16 05:00 90 11 L 159/75 97 10/11/16 04:00 98.1 F 113 H 33 H 139/66 91 L 10/11/16 03:00 96 10 L 132/65 98 10/11/16 02:00 105 H 20 132/65 98 10/11/16 01:30 107 H 15 128/60 98 10/11/16 01:00 104 H 13 142/68 98 10/11/16 00:00 100.1 F H 99 15 142/68 98 10/10/16 23:30 103 H 16 97 10/10/16 23:00 101.6 F H 102 H 17 151/73 98 10/10/16 21:55 102.6 F H 111 H 20 144/70 98 10/10/16 21:18 103.1 F H 112 H 20 155/82 95 Intake and Output 10/10/16 10/11/16 10/11/16 22:59 06:59 14:59 Intake Total 1175 1400 Output Total 575 355 330 Balance -618 048 0542 Intake: IV 600 0.9 nacl 600 Intake, IV Titration 1175 800 Amount Acyclovir Sodium 1,300 mg 250 250 In Sodium Chloride 0.9% 250 ml @ 250 mls/hr IV Q8HR [facility] Rx#:[id number] Magnesium Sulfate-D5w Pmx 200 100 1 gm In Dextrose/Water 1 100ml.bag @ 100 mls/hr IVPB Q1H [facility] Rx#: [id number] Sodium Chloride 0.9% 1, 600 100 000 ml @ 100 mls/hr IV . Q10H [facility] Rx#:[id number] Vancomycin 1,250 mg In 125 250 Sodium Chloride 0.9% 250 ml @ 125 mls/hr IVPB Q16H [facility] Rx#:[id number] cefTRIAXone 2,000 mg In 100 Sodium Chloride 0.9% 100 ml @ 100 mls/hr IVPB Q12HR@0000,1200 [facility] Rx#: [id number] Output: Urine 575 355 330 Other: Voiding Method Indwelling Catheter Indwelling Catheter Weight 73 kg Physical Exam: Revealed an 85-year-old in no distress HEENT:[Neck is supple.] [No neck masses.] [No thyromegaly.] [No JVD.] Chest: [Clear throughout, no crackles, no rhonchi, no wheezes.] Cardiac Exam: [Normal S1 and S2, no S3 gallop, no murmur.] Abdomen: [Soft, nontender, no megaly, no rebound, no guarding, normal bowel sounds.] Extremities: [No clubbing, no edema, no cyanosis.] Neurological Exam: Patient is arousable, follows simple instructions, pupils are both reactive to light, patient is a bit confused to the time of the but she is oriented to place and person. Results - Laboratory Findings CBC and BMP: 10/11/16 06:51 10/11/16 06:51 ABG ABG pH 7.51 (7.35-7.45) H 10/10/16 17:01 ABG pCO2 22 mmHg (35-45) L 10/10/16 17:01 ABG pO2 103 mmHg (83-108) 10/10/16 17:01 ABG O2 Saturation 99.0 % (94-97) H 10/10/16 17:01 PT/INR, D-dimer PT 11.1 sec (9.0-12.0) 10/10/16 21:10 INR 1.1 (<1.1) 10/10/16 21:10 D-Dimer 1.29 mg/L FEU (<0.60) H 10/10/16 13:45 Abnormal lab findings: Abnormal Labs 10/10/16 10/11/16 10/11/16 22:28 02:14 04:28 Hgb Sodium Carbon Dioxide Creatinine Glucose POC Glucose (mg/dL) 123 H 116 H Calcium Total Creatine Kinase 443 H CK-MB (CK-2) 6.1 H* Troponin I 0.119 H* CSF RBC CSF Glucose CSF Total Protein 10/11/16 10/11/16 10/11/16 06:40 06:51 06:51 Hgb 11.3 L Sodium 127 L Carbon Dioxide 19 L Creatinine 0.47 L Glucose 125 H POC Glucose (mg/dL) Calcium 7.1 L Total Creatine Kinase CK-MB (CK-2) Troponin I CSF RBC 110 H CSF Glucose 80 H CSF Total Protein 85 H 10/11/16 08:42 Hgb Sodium Carbon Dioxide Creatinine Glucose POC Glucose (mg/dL) Calcium Total Creatine Kinase 576 H CK-MB (CK-2) 9.5 H* Troponin I 0.069 H* CSF RBC CSF Glucose CSF Total Protein - Diagnostic Findings Additional studies: All studies which were done in the ER were reviewed and they seem to be relatively unremarkable. Assessment and Plan Plan: Acute mental status change, most likely secondary to hyponatremia. And secondary to fever. This could also be secondary to opiates/[place] which was given for her pain secondary to viral, herpetic dermatitis involving the left chest wall. The exact etiology of her fever is not clear, but could very well be related to her viral dermatitis. Based on the results of the spinal fluid, strongly doubt any viral encephalitis or bacterial meningitis. Patient is yet to be seen by infectious disease on consultation, and her antibiotics will likely be changed significantly. Patient could be considered for possible transfer out of the ICU today. And we will continue to follow. Multiple comorbidities including COPD, essential hypertension, hypothyroidism, degenerative joint disease, and recent episode of herpes zoster dermatitis involving the left chest wall, one dermatome. These medical problems seem to be relatively stable at this point. Time with Patient: Greater than 30
[2016-10-11 12:52] LABS: Glucose,Whole Blood 115 mg/dL (75-99)
--- NOTE | 2016-10-11 13:19 | HP ---
DATE OF ADMISSION: 10/10/2016 CHIEF COMPLAINT: Change in mental status. HISTORY OF PRESENT ILLNESS: This 85-year-old woman with a past medical history of multiple medical problems such as asthma, COPD, history of hypertension, history of sleep apnea, history of section being followed by Dr. Hipolito Wallace in the outpatient setting, recently admitted with chest pain. Myocardial infarction ruled out at that time. The patient is apparently living with her . The patient had a rash and apparently pain below the breast a few days ago and the patient went to urgent care clinic and was through to have herpes zoster rash and was given acyclovir p.o. But yesterday the family noticed that the patient was confused. The patient was trying to climb out to 's bed and subsequently the family found the patient unresponsive and confused and the patient was taken to [facility] Emergency Room for further evaluation and treatment. The patient has a blank stare according to the family. The patient is noncommunicative currently. The patient is unable to give coherent history and most of the history taken from my discussion with staff, ER physician and discussion with family at the bedside. The patient is running high-grade fever also. Multiple evaluations in the ER were done. Patient had a previous UTI, but most recent UA is negative. The patient is also found to be hyponatremic. Lumbar puncture was attempted in the ER. There is no history of other trauma. PAST MEDICAL HISTORY: History of asthma, COPD, history of degenerative joint disease, hypertension, sleep apnea, section, joint replacement. Medications prior to admission include home medications are: 1. Exforge 5/160 p.o. daily. 3. Fish oil 1 p.o. daily. 4. Singulair 10 mg q.h.s. 5. Synthroid 112 mcg p.o. daily. 6. Combivent 1 puff q.i.d. p.r.n. 7. [place] 1 tablet q.6 p.r.n. 8. Advair 500/50, one puff b.i.d. 9. Flonase one spray b.i.d. p.r.n. 10. Vitamin B12 500 mcg p.o. daily. 12. Calcium with vitamin D 1 p.o. daily. 13. Vitamin C 500 mcg p.o. daily. 14. Ventolin 2.5 b.i.d. 15. Zovirax 800 mg 5 times daily. ALLERGIES: MILK, WHEAT. Family history, social history, and review of systems could not be taken because of the patient's change in mental status. History of cancer in the family and no history of smoking per chart. PHYSICAL EXAMINATION: The patient is conscious, confused and delirious. Pulse is 111 irregular, blood pressure 144/72, respirations 20, temperature 102.6, pulse ox 90% on 2-L. HEENT: Conjunctivae normal. Oral mucosa moist. NECK: No jugular venous distention. No carotid bruit. No lymph node enlargement. No neck stiffness. CARDIOVASCULAR: S1 and S2, muffled. No S3, no S4. RESPIRATORY: Breath sounds diminished at the bases. A few scattered rhonchi, no crackles. ABDOMEN: Soft, obese, nontender. No mass palpable. LEGS: No edema, no swelling. NERVOUS SYSTEM: Higher function as mentioned earlier. Otherwise moves all four limbs. No focal motor or sensory deficits. Detailed exam could not be done. SKIN: No ulcer, rash or bleeding. LYMPHATIC: No lymphadenopathy in the neck, axillae or groin. LABS: WBC 12.4. ABGs noted. Otherwise, sodium 123. ASSESSMENT: 1. Fever with possible sepsis of undetermined etiology. 2. Rule out meningeal encephalitis. 3. Change in mental status, metabolic encephalopathy. 4. Hypomagnesemia. 5. Increased WBC. 6. Respiratory alkalosis. 7. Hyponatremia. 8. Hypochloremia. 9. Increased random blood sugar. 10. Obesity. 11. Troponin 0.05, indeterminate. 12. History of recent chest pain. 13. History of asthma, chronic obstructive pulmonary disease. 14. Hypertension. 15. History of degenerative joint disease. 16. History of sleep apnea. 17. History of section. 18. History of motion sickness. 19. NO CODE, NO CPR, NO VENT. RECOMMENDATIONS AND DISCUSSION: This 85-year-old woman who presented with multiple complex medical issues, will monitor the patient closely. Continue the current medications and symptomatic treatment. I will initiate IV acyclovir empirically. Also add broad-spectrum IV antibiotics of vancomycin and Rocephin. Lumbar puncture may be repeated later with viral bacterial cultures. Infectious Disease evaluation with Dr. Smiley and Dr. Rdz to consult for ICU management. Dr. Hau will be consulted for neurology. Continue with neurological evaluation. Overall prognosis is guarded because of multiple complex medical issues as listed above. Will continue with symptomatic treatment. Continue to follow. Discussed with the family who understands. Please note, the patient is NO CODE. MTDD
[2016-10-11] MEDS: HEPARIN SODIUM,PORCINE 5,000 UNIT/ML 1 ML VIAL SQ SCH ×2 (13:52→20:08)
[2016-10-11] MEDS ORDERED: IPRATROPIUM-ALBUTEROL 3 ML NEB INHALATION PRN (14:07)
--- NOTE | 2016-10-11 15:32 | P.CONS ---
History of Present Illness - Reason for Consult Consult date: 10/11/16 Altered mental status - Chief Complaint Altered mental status - History of Present Illness This is an 85-year-old female being evaluated by neurology service for altered mental status. She was brought to [facility] emergency room by ambulance. Her son and had noticed that she was not responding verbally to them. No falls or seizure-like activities are noticed. She was recently diagnosed with an outbreak of shingles and was being treated with acyclovir and Sciota for pain. In the ER she was confused and noncommunicative, and presented with a fever of 104. Her CBC was relatively normal and she was found to be hyponatremic. A lumbar puncture was attempted in the ER given her recent history of herpes zoster infection. This was not able to be done in the ER but has been done since then initial results of her CSF have been fairly unremarkable. Infectious disease have been consulted and she is on empiric therapy for viral and bacterial encephalitis/meningitis. Since then she has become much more lucid and responsive but still at times confused. MRI of the brain was performed there was no evidence of acute infarct, there was mild to moderate cerebral atrophy and moderate chronic small vessel ischemic changes. She continues to be treated with IV fluids and her electrolytes are being corrected. At the time of my evaluation her daughter and are in the room and say her mental status is much better but at times she still somewhat confused. Review of Systems All systems: negative Past Medical History Past Medical History: Asthma, COPD, Eye Disorder, Hypertension, Osteoarthritis ( OA), Sleep Apnea/CPAP/BIPAP Additional Past Medical History / Comment(s): HX CATARACTS (removed), macular degeneration. Sinus & Allergies. uses while in bed but gets up niughtly d/t pain in knees & hips and sleps in recliner w/out. INCREASED COUGH, CHEST CONGESTION RECENTLY. History of Any Multi-Drug Resistant Organisms: None Reported Past Surgical History: Section, Joint Replacement Additional Past Surgical History / Comment(s): X3. Thyroidectomy. Damir Knee Replacements, RT hip replaced. BRONCH X2. Past Anesthesia/Blood Transfusion Reactions: Motion Sickness, Postoperative Nausea & Vomiting (PONV) Additional Past Anesthesia/Blood Transfusion Reaction / Comm: severe PONV Past Psychological History: No Psychological Hx Reported Smoking Status: Never smoker Past Alcohol Use History: Occasional Additional Past Alcohol Use History / Comment(s): about 1 glass of wine per month Past Drug Use History: None Reported - Past Family History Daughter(s) Family Medical History: Cancer Additional Family Medical History / Comment(s): uterine Mother Family Medical History: Hypertension, Osteoarthritis (OA) Additional Family Medical History / Comment(s): of multiple myeloma at 73 Father Family Medical History: Cancer Additional Family Medical History / Comment(s): of lung ca, mesothelioma d/ t asbestos Medications and Allergies Home Medications Medication Instructions Recorded Confirmed Type Fluticasone/Salmeterol [Advair 1 puff INHALATION RT-BID 12/19/14 10/10/16 History 500-50 Diskus] Ipratropium/Albuterol Sulfate 1 puff INHALATION RT-QID PRN 12/19/14 10/10/16 History [Combivent Respimat Inhaler] Levothyroxine Sodium [Synthroid] 112 mcg PO DAILY 12/19/14 10/10/16 History Montelukast [Singulair] 10 mg PO HS 12/19/14 10/10/16 History amLODIPine/VALSARTAN [Exforge 1 tab PO DAILY 12/19/14 10/10/16 History 5-160 mg Tablet] Ascorbic Acid [Vitamin C] 500 mg PO DAILY 11/07/15 10/10/16 History Vit A,C & E/Lutein/Minerals 1 tab PO DAILY 11/07/15 10/10/16 History [Ocuvite with Lutein Tablet] Albuterol Nebulized [Ventolin 2.5 mg INHALATION RT-BID 09/12/16 10/10/16 History Nebulized] Ca/D3/Mag#11/Zinc/Jointer Machine Operator/Lee/Bor 1 tab PO DAILY 09/12/16 10/10/16 History [Caltrate 600+D Plus Tablet] Cyanocobalamin [Vitamin B-12] 500 mcg PO DAILY 09/12/16 10/10/16 History Fluticasone Nasal [place] [Flonase 1 spray EA NOSTRIL BID PRN 09/12/16 10/10/16 History Nasal [place]] [place]-3 Fatty Acids/Fish Oil [Fish 1 cap PO DAILY 09/12/16 10/10/16 History Oil 1,000 mg Softgel] Acyclovir [Zovirax] 800 mg PO 5XD 10/10/16 10/10/16 History HYDROcodone/APAP 5-325MG [Sciota 1 tab PO Q6HR PRN 10/10/16 10/10/16 History 5-325] Allergies Allergy/AdvReac Type Severity Reaction Status Date / Time cat dander Allergy Congestion Verified 10/11/16 01:21 dog dander Allergy Congestion Verified 10/11/16 01:21 Milk Containing Products Allergy Unknown Verified 10/10/16 16:22 [Dairy] shellfish derived [Shrimp] Allergy Rash/Hives Verified 10/11/16 01:21 wheat Allergy Unknown Verified 10/10/16 16:22 Physical Exam Vitals: Vital Signs Temp Pulse Resp BP Pulse Ox 10/11/16 13:00 82 17 139/59 98 10/11/16 12:46 79 10/11/16 12:36 79 10/11/16 12:30 79 23 139/59 10/11/16 12:00 80 18 152/73 98 10/11/16 11:30 152/73 10/11/16 11:00 97 21 96/59 97 10/11/16 10:30 79 24 96/59 97 10/11/16 10:00 70 17 136/57 96 10/11/16 09:41 73 10/11/16 09:30 74 14 136/57 94 L 10/11/16 09:27 71 10/11/16 09:00 71 15 127/61 94 L 10/11/16 08:30 73 8 L 127/61 97 10/11/16 08:00 78 9 L 110/61 94 L 10/11/16 07:30 77 12 84/53 97 10/11/16 07:00 74 11 L 129/79 95 10/11/16 06:00 81 13 144/67 97 10/11/16 05:00 90 11 L 159/75 97 10/11/16 04:00 98.1 F 113 H 33 H 139/66 91 L 10/11/16 03:00 96 10 L 132/65 98 10/11/16 02:00 105 H 20 132/65 98 10/11/16 01:30 107 H 15 128/60 98 10/11/16 01:00 104 H 13 142/68 98 10/11/16 00:00 100.1 F H 99 15 142/68 98 12/30/16 23:30 103 H 16 97 10/10/16 23:00 101.6 F H 102 H 17 151/73 98 10/10/16 21:55 102.6 F H 111 H 20 144/70 98 10/10/16 21:18 103.1 F H 112 H 20 155/82 95 Intake and Output 10/11/16 10/11/16 10/11/16 06:59 14:59 22:59 Intake Total 1175 1500 Output Total 355 365 Balance 820 1135 Intake: IV 700 0.9 nacl 700 Intake, IV Titration 1175 800 Amount Acyclovir Sodium 1,300 mg 250 250 In Sodium Chloride 0.9% 250 ml @ 250 mls/hr IV Q8HR [facility] Rx#:[id number] Magnesium Sulfate-D5w Pmx 200 100 1 gm In Dextrose/Water 1 100ml.bag @ 100 mls/hr IVPB Q1H [facility] Rx#: [id number] Sodium Chloride 0.9% 1, 600 100 000 ml @ 100 mls/hr IV . Q10H [facility] Rx#:[id number] Vancomycin 1,250 mg In 125 250 Sodium Chloride 0.9% 250 ml @ 125 mls/hr IVPB Q16H [facility] Rx#:[id number] cefTRIAXone 2,000 mg In 100 Sodium Chloride 0.9% 100 ml @ 100 mls/hr IVPB Q12HR@0000,1200 [facility] Rx#: [id number] Output: Urine 355 365 Other: Voiding Method Indwelling Catheter Indwelling Catheter Weight 73 kg - Constitutional General appearance: average body habitus - EENT Eyes: no abnormal pupil, EOMI, PERRLA, no ptosis ENT: hearing grossly normal - Neck Neck: no lymphadenopathy, normal ROM, no rigidity - Respiratory Respiratory: negative: prolonged expiration, prolonged inspiration - Cardiovascular Rhythm: regular - Gastrointestinal General gastrointestinal: no distended, no tenderness - Neurologic The patient is sleepy but easily awoken. She is oriented to person place and partially to time. Speech and language are normal. There is no facial asymmetry. Strength is 5 minus out of 5 in bilateral upper and lower extremities. There is no sensory deficit of the upper or lower extremities. There is no nuchal rigidity. Results CBC & Chem 7: 10/11/16 06:51 10/11/16 06:51 Labs: Abnormal Lab Results - Last 24 Hours (Table) 1210/11/16 10/11/16 Range/Units 22:28 02:14 04:28 Hgb (11.4-16.0) gm/dL Sodium (137-145) mmol/L Carbon Dioxide (22-30) mmol/L Creatinine (0.52-1.04) mg/dL Glucose (74-99) mg/dL POC Glucose (mg/dL) 123 H 116 H (75-99) mg/dL Calcium (8.4-10.2) mg/dL Total Creatine Kinase 443 H (30-135) U/L CK-MB (CK-2) 6.1 H* (0.0-2.4) ng/mL Troponin I 0.119 H* (0.000-0.034) ng/mL CSF RBC (0-10) u/L CSF Glucose (40-70) mg/dL CSF Total Protein (12-60) mg/dL 10/11/16 10/11/16 10/11/16 Range/Units 06:40 06:51 06:51 Hgb 11.3 L (11.4-16.0) gm/dL Sodium 127 L (137-145) mmol/L Carbon Dioxide 19 L (22-30) mmol/L Creatinine 0.47 L (0.52-1.04) mg/dL Glucose 125 H (74-99) mg/dL POC Glucose (mg/dL) (75-99) mg/dL Calcium 7.1 L (8.4-10.2) mg/dL Total Creatine Kinase (30-135) U/L CK-MB (CK-2) (0.0-2.4) ng/mL Troponin I (0.000-0.034) ng/mL CSF RBC 110 H (0-10) u/L CSF Glucose 80 H (40-70) mg/dL CSF Total Protein 85 H (12-60) mg/dL 10/11/16 10/11/16 Range/Units 08:42 12:50 Hgb (11.4-16.0) gm/dL Sodium (137-145) mmol/L Carbon Dioxide (22-30) mmol/L Creatinine (0.52-1.04) mg/dL Glucose (74-99) mg/dL POC Glucose (mg/dL) 115 H (75-99) mg/dL Calcium (8.4-10.2) mg/dL Total Creatine Kinase 576 H (30-135) U/L CK-MB (CK-2) 9.5 H* (0.0-2.4) ng/mL Troponin I 0.069 H* (0.000-0.034) ng/mL CSF RBC (0-10) u/L CSF Glucose (40-70) mg/dL CSF Total Protein (12-60) mg/dL Microbiology - Last 24 Hours (Table) 10/11/16 06:40 CSF Gram Stain - Preliminary Cerebral Spinal Fluid 10/11/16 03:13 Urine Culture - Preliminary Urine,Catheterized Assessment and Plan (1) Infectious encephalopathy Status: Acute (2) Altered mental status Status: Acute (3) Delirium due to general medical condition Status: Acute (4) Fever Status: Acute (5) Hyponatremia Status: Acute (6) Acute metabolic encephalopathy Status: Acute Plan: Her altered mental status was likely an acute encephalopathy which is likely multifactorial. Steps are being taken to correctly metabolic abnormalities, she is on broad-spectrum antibiotics and antivirals, and infectious disease consultation has been placed. She was also given Sciota which she is not accustomed to take. This may have also contributed somewhat. Continue IV hydration continue neurological checks. I have ordered an EEG. We will continue to follow and make recommendations based on the above study. I reviewed the history and physical on the above patient. I have reviewed the above note, and agree.
[2016-10-11 16:54] LABS: Glucose,Whole Blood 106 mg/dL (75-99)
--- NOTE | 2016-10-11 17:30 | CONS ---
DATE OF CONSULTATION: Mrs. Cain is an 85-year-old female who is admitted through the emergency room with change in mental status. The patient was in the hospital earlier this month with symptoms of chest discomfort. Apparently at home she had fever, change in mental status and was quite confused on presentation, she was recently diagnosed with shingles and has been started on treatment. She is at the time of my evaluation, she is awake, alert. She recognized me. She is not quite sure why she is in the hospital. Patient is nauseated. She denies any chest pain. Her breathing has been stable. She denies any dizziness, palpitation. She denies any syncope. [facility] consultation was requested because of an elevation of her troponin. Her coronary risk factors are positive for history of hypertension. She is nondiabetic, nonsmoker. She has underwent a stress echocardiogram earlier this year that revealed no evidence of inducible ischemia and her echocardiogram earlier this month has shown a preserved left ventricular size and systolic function with moderate aortic sclerosis and mild aortic regurgitation and mitral regurgitation. Her medications at home prior to admission included: 1. ( ) 5-160 mg daily. 2. Levothyroxine. 3. [place]. 4. Flonase. 5. Caltrate. 6. Acyclovir. 7. Vitamin C. 8. Ventolin. REVIEW OF SYSTEMS: RESPIRATORY SYSTEM: She denies any recent wheezing. She has history of chronic dyspnea. She history of obstructive lung disease. GI system: She is nauseated but denies any GI bleeding. She denies any vomiting. system: She denies any dysuria or hematuria. Nervous system: She denies any seizure. PHYSICAL EXAMINATION: She is an 85-year-old female, alert at this point, no apparent distress. Aware. Could recognize my name right away. Yesterday, she had a T-max of 104. This morning she is afebrile. Her blood pressure 136/50 with a heart in the 70s. HEAD: Normocephalic. EYES: Sclerae anicteric. NECK: No bruit appreciated. LUNGS: Clear to auscultation. HEART: Regular rate rhythm. S1, S2, no S3, with a systolic murmur heard at the base. No diastolic murmur. No rub. ABDOMEN: Soft, nontender, positive bowel sounds. No organomegaly. EXTREMITIES: No edema. EKG reveals sinus mechanism with evidence of possible prior inferior myocardial infarction, but no acute ST segment changes. Her chest x-ray shows no acute infiltrate. CT angiogram of the chest revealed no evidence of pulmonary embolism. CT scan of the head revealed no acute bleeding. Her BUN and creatinine of 10 and 0.47. Her troponin is less than 0.012, 0.052 and 0.119. On presentation, white blood cells 12.4. IMPRESSION: 1. Febrile episode with change in mental status, etiology unclear. Work-up in progress. 2. Mild elevation troponin most likely representing a type II event. No evidence to suggest a primary ischemic event. 3. History of hypertension. 4. Recent episode of shingles. 5. History of chronic obstructive lung disease with history of smoking in the past. RECOMMENDATIONS: From the cardiac standpoint, the patient is stable, I see no evidence to suggest active ischemic heart disease. I would not recommend further cardiac work-up at this time. She had underwent an echocardiogram recently and that was unremarkable. She will be seen by the infectious disease service. Depending on her progress, further recommendation be made. Thank you for this consult. We will follow with you.
--- NOTE | 2016-10-11 18:58 | P.CONS ---
History of Present Illness - Reason for Consult Consult date: 10/11/16 - Chief Complaint Altered mental status - History of Present Illness Pleasant 85-year-old female was brought by EMS from her home because of altered mental status. This pleasant woman lives with her it is usually quite active. The is also very helpful around the house. She is having some difficulties because of the onset of a bit of discomfort and rash to her left upper flank area. She was seen in the outpatient setting and was thought to have evidence of shingles and was begun on oral acyclovir as well as some [place] for pain control. After this she developed a significant change of her mental status. In because she was doing so poorly she was brought to Hospital by EMS. At admission there was evidence of high-grade fever and altered mental status. She was admitted to intensive care unit. She' s been treated with antibiotic therapy as well as antiviral therapy. She also received some Narcan. Her mental status is now much improved. Lumbar puncture was performed. 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 Review of Systems HEENT:Denies headache or acute visual change. Denies sinus or mouth discomforts. Denies neck stiffness or pain. Denies significant oral cavity pain. Denies difficulty on swallowing. Lungs: Denies significant shortness of breath, cough, sputum production, or hemoptysis. Cardiovascular: Denies significant shortness of breath, chest pain, chest wall pain, orthopnea, dyspnea on exertion, syncope Gastrointestinal:Denies nausea, vomiting, diarrhea, constipation, hematemesis, melena, hematochezia. No no significant change of bowel habit noticed. Musculoskeletal: denies significant myalgias or arthralgias. No new joint swelling. Denies new back pain. Skin: Denies new rash or lesions. No new ulcers or wounds are related.. Neuro: At admission was confused and noncommunicative. Is now considerably improved. Able to relate that she is at [facility] is able to correct it to [facility]. Although is having some difficulty with the date. Psychiatric:Denies anxiety or depression. Endocrine: Denies significant fatigue, denies significant weight loss or weight gain. Past Medical History Past Medical History: Asthma, COPD, Eye Disorder, Hypertension, Osteoarthritis ( OA), Sleep Apnea/CPAP/BIPAP Additional Past Medical History / Comment(s): HX CATARACTS (removed), macular degeneration. Sinus & Allergies. uses while in bed but gets up niughtly d/t pain in knees & hips and sleps in recliner w/out. INCREASED COUGH, CHEST CONGESTION RECENTLY. History of Any Multi-Drug Resistant Organisms: None Reported Past Surgical History: Section, Joint Replacement Additional Past Surgical History / Comment(s): X3. Thyroidectomy. Damir Knee Replacements, RT hip replaced. BRONCH X2. Past Anesthesia/Blood Transfusion Reactions: Motion Sickness, Postoperative Nausea & Vomiting (PONV) Additional Past Anesthesia/Blood Transfusion Reaction / Comm: severe PONV Past Psychological History: No Psychological Hx Reported Additional Psychological History / Comment(s): and lives in the family home with the . Retired. No experience. No international travel. No recent animal exposures. 3.children are healthy and she [employer]PER[employer] family for the [place] holiday and no one is ill Smoking Status: Never smoker Past Alcohol Use History: Occasional Additional Past Alcohol Use History / Comment(s): about 1 glass of wine per month Past Drug Use History: None Reported - Past Family History Daughter(s) Family Medical History: Cancer Additional Family Medical History / Comment(s): uterine Mother Family Medical History: Hypertension, Osteoarthritis (OA) Additional Family Medical History / Comment(s): of multiple myeloma at 73 Father Family Medical History: Cancer Additional Family Medical History / Comment(s): of lung ca, mesothelioma d/ t asbestos Medications and Allergies Home Medications and Allergies Comment(s): Current Medications Albuterol/Ipratropium (Duoneb 0.5 Mg-3 Mg/3 Ml Soln) 3 ml INHALATION RT-QID PRN PRN Reason: Shortness Of Breath Or Wheezing Albuterol/Ipratropium (Duoneb 0.5 Mg-3 Mg/3 Ml Soln) 3 ml INHALATION RT-QID [facility] Heparin Sodium (Porcine) (Heparin) 5,000 unit SQ Q12HR [facility] Last Admin: 10/11/16 13:52 Dose: 5,000 unit Hydralazine HCl (Apresoline) 10 mg IVP Q4HR PRN PRN Reason: Blood Pressure - High Hydromorphone HCl (Dilaudid) 0.5 mg IVP Q6HR PRN PRN Reason: Pain Acyclovir Sodium 1,300 mg/ (Sodium Chloride) 276 mls @ 250 mls/hr IV Q8HR [facility] Last Admin: 10/11/16 16:04 Dose: 250 mls/hr Vancomycin HCl 1,250 mg/ (Sodium Chloride) 250 mls @ 125 mls/hr IVPB Q16H [facility] Last Admin: 10/11/16 09:52 Dose: 125 mls/hr Sodium Chloride (Saline 0.9%) 1,000 mls @ 100 mls/hr IV .Q10H [facility] Last Admin: 10/11/16 08:57 Dose: 100 mls/hr Ipratropium Paramus (Atrovent Nebulized) 0.5 mg INHALATION RT-TID [facility] Stop: 10/12/16 09:00 Levalbuterol HCl (Xopenex Nebulized (Conc)) 1.25 mg INHALATION RT-TID [facility] Stop: 10/12/16 09:00 Levothyroxine Sodium (Synthroid Ivp) 62.5 mcg IV DAILY [facility] Last Admin: 10/11/16 09:59 Dose: 62.5 mcg Lorazepam (Ativan) 0.5 mg IV Q4HR PRN PRN Reason: Mild Anxiety Lorazepam (Ativan) 1 mg IV Q4HR PRN PRN Reason: Moderate-Severe Anxiety Miscellaneous Information (Rx Info: Iv Contrast Was Given) 1 each MISCELLANE DAILY PRN PRN Reason: Per Protocol Stop: 10/12/16 17:20 Last Admin: 10/10/16 20:15 Dose: 1 each Miscellaneous Information (Magnesium Per Protocol) 1 each MISCELLANE DAILY PRN ; Protocol PRN Reason: Per Protocol Naloxone HCl (Narcan) 0.2 mg IV Q2M PRN PRN Reason: Opioid Reversal Ondansetron HCl (Zofran) 4 mg IVP Q6HR PRN PRN Reason: Nausea And Vomiting Last Admin: 10/11/16 15:47 Dose: 4 mg Pantoprazole Sodium (Protonix) 40 mg IV DAILY [facility] Last Admin: 10/11/16 10:02 Dose: 40 mg Home Medications Medication Instructions Recorded Confirmed Type Fluticasone/Salmeterol [Advair 1 puff INHALATION RT-BID 12/19/14 10/10/16 History 500-50 Diskus] Ipratropium/Albuterol Sulfate 1 puff INHALATION RT-QID PRN 12/19/14 10/10/16 History [Combivent Respimat Inhaler] Levothyroxine Sodium [Synthroid] 112 mcg PO DAILY 12/19/14 10/10/16 History Montelukast [Singulair] 10 mg PO HS 12/19/14 10/10/16 History amLODIPine/VALSARTAN [Exforge 1 tab PO DAILY 12/19/14 10/10/16 History 5-160 mg Tablet] Ascorbic Acid [Vitamin C] 500 mg PO DAILY 11/07/15 10/10/16 History Vit A,C & E/Lutein/Minerals 1 tab PO DAILY 11/07/15 10/10/16 History [Ocuvite with Lutein Tablet] Albuterol Nebulized [Ventolin 2.5 mg INHALATION RT-BID 09/12/16 10/10/16 History Nebulized] Ca/D3/Mag#11/Zinc/Customer Care Professional/Lee/Bor 1 tab PO DAILY 09/12/16 10/10/16 History [Caltrate 600+D Plus Tablet] Cyanocobalamin [Vitamin B-12] 500 mcg PO DAILY 09/12/16 10/10/16 History Fluticasone Nasal [place] [Flonase 1 spray EA NOSTRIL BID PRN 09/12/16 10/10/16 History Nasal [place]] [place]-3 Fatty Acids/Fish Oil [Fish 1 cap PO DAILY 09/12/16 10/10/16 History Oil 1,000 mg Softgel] Acyclovir [Zovirax] 800 mg PO 5XD 10/10/16 10/10/16 History HYDROcodone/APAP 5-325MG [[place] 1 tab PO Q6HR PRN 10/10/16 10/10/16 History 5-325] Allergies Allergy/AdvReac Type Severity Reaction Status Date / Time cat dander Allergy Congestion Verified 10/11/16 01:21 dog dander Allergy Congestion Verified 10/11/16 01:21 Milk Containing Products Allergy Unknown Verified 10/10/16 16:22 [Dairy] shellfish derived [Shrimp] Allergy Rash/Hives Verified 10/11/16 01:21 wheat Allergy Unknown Verified 10/10/16 16:22 Physical Exam Vitals: Vital Signs Temp Pulse Pulse Resp BP BP Pulse Ox 10/11/16 15:00 96.2 F L 79 20 142/68 98 10/11/16 13:00 82 17 139/59 98 10/11/16 12:46 79 10/11/16 12:36 79 10/11/16 12:30 79 23 139/59 10/11/16 12:00 80 18 152/73 98 10/11/16 11:30 152/73 10/11/16 11:00 97 21 96/59 97 10/11/16 10:30 79 24 96/59 97 10/11/16 10:00 70 17 136/57 96 10/11/16 09:41 73 10/11/16 09:30 74 14 136/57 94 L 10/11/16 09:27 71 10/11/16 09:00 71 15 127/61 94 L 10/11/16 08:30 73 8 L 127/61 97 10/11/16 08:00 78 9 L 110/61 94 L 10/11/16 07:30 77 12 84/53 97 10/11/16 07:00 74 11 L 129/79 95 10/11/16 06:00 81 13 144/67 97 10/11/16 05:00 90 11 L 159/75 97 10/11/16 04:00 98.1 F 113 H 33 H 139/66 91 L 10/11/16 03:00 96 10 L 132/65 98 10/11/16 02:00 105 H 20 132/65 98 10/11/16 01:30 107 H 15 128/60 98 10/11/16 01:00 104 H 13 142/68 98 10/11/16 00:00 100.1 F H 99 15 142/68 98 10/10/16 23:30 103 H 16 97 10/10/16 23:00 101.6 F H 102 H 17 151/73 98 10/10/16 21:55 102.6 F H 111 H 20 144/70 98 10/10/16 21:18 103.1 F H 112 H 20 155/82 95 Intake and Output 10/11/16 10/11/16 10/11/16 06:59 14:59 22:59 Intake Total 1175 1500 Output Total 355 365 Balance 820 1135 Intake: IV 700 0.9 nacl 700 Intake, IV Titration 1175 800 Amount Acyclovir Sodium 1,300 mg 250 250 In Sodium Chloride 0.9% 250 ml @ 250 mls/hr IV Q8HR [facility] Rx#:[id number] Magnesium Sulfate-D5w Pmx 200 100 1 gm In Dextrose/Water 1 100ml.bag @ 100 mls/hr IVPB Q1H [facility] Rx#: [id number] Sodium Chloride 0.9% 1, 600 100 000 ml @ 100 mls/hr IV . Q10H [facility] Rx#:[id number] Vancomycin 1,250 mg In 125 250 Sodium Chloride 0.9% 250 ml @ 125 mls/hr IVPB Q16H [facility] Rx#:[id number] cefTRIAXone 2,000 mg In 100 Sodium Chloride 0.9% 100 ml @ 100 mls/hr IVPB Q12HR@0000,1200 [facility] Rx#: [id number] Output: Urine 355 365 Other: Voiding Method Indwelling Catheter Indwelling Catheter Indwelling Catheter Weight 73 kg 85-year-old woman who is sitting upright millicurie of to the observer. HEENT: Anicteric conjunctiva are pink and moist nasal mucosa grossly intact without significant lesions, there is no thrush. Neck: The neck is supple without significant lymphadenopathy or thyromegaly. Lungs: Good bilateral air entry without significant crackles or wheezing. There is no significant bronchial sounds. There is no egophony or dullness. Heart: Regular rate and rhythm with an audible S1-S2, no S3 no S4. There is no significant murmur click or rub, PMI was nondisplaced. Abdomen: Positive bowel sounds soft and nontender without palpable masses or organomegaly. There was no guarding or rebound. Extremities: The upper extremities have excellent pulses they are symmetric, no significant petechiae or telangiectasia. No splinter hemorrhages were noted. The lower extremities are free from significant edema. The peripheral pulses were 2+ and symmetric. Neuro: Awake alert oriented to person place and has some difficulty with time. Thought maybe it was 2007. But is able to correct her to hold he was. And then she knows 2015. She is a bit vague with details. Asked if she wear CPAP she says no but the CPAP machine is sitting next to her. Results CBC & Chem 7: 10/11/16 06:51 10/11/16 06:51 Labs: Abnormal Lab Results - Last 24 Hours (Table) 10/10/16 10/11/16 10/11/16 Range/Units 22:28 02:14 04:28 Hgb (11.4-16.0) gm/dL Sodium (137-145) mmol/L Carbon Dioxide (22-30) mmol/L Creatinine (0.52-1.04) mg/dL Glucose (74-99) mg/dL POC Glucose (mg/dL) 123 H 116 H (75-99) mg/dL Calcium (8.4-10.2) mg/dL Total Creatine Kinase 443 H (30-135) U/L CK-MB (CK-2) 6.1 H* (0.0-2.4) ng/mL Troponin I 0.119 H* (0.000-0.034) ng/mL CSF RBC (0-10) u/L CSF Glucose (40-70) mg/dL CSF Total Protein (12-60) mg/dL 10/11/16 10/11/16 10/11/16 Range/Units 06:40 06:51 06:51 Hgb 11.3 L (11.4-16.0) gm/dL Sodium 127 L (137-145) mmol/L Carbon Dioxide 19 L (22-30) mmol/L Creatinine 0.47 L (0.52-1.04) mg/dL Glucose 125 H (74-99) mg/dL POC Glucose (mg/dL) (75-99) mg/dL Calcium 7.1 L (8.4-10.2) mg/dL Total Creatine Kinase (30-135) U/L CK-MB (CK-2) (0.0-2.4) ng/mL Troponin I (0.000-0.034) ng/mL CSF RBC 110 H (0-10) u/L CSF Glucose 80 H (40-70) mg/dL CSF Total Protein 85 H (12-60) mg/dL 10/11/16 10/11/16 10/11/16 Range/Units 08:42 12:50 16:51 Hgb (11.4-16.0) gm/dL Sodium (137-145) mmol/L Carbon Dioxide (22-30) mmol/L Creatinine (0.52-1.04) mg/dL Glucose (74-99) mg/dL POC Glucose (mg/dL) 115 H 106 H (75-99) mg/dL Calcium (8.4-10.2) mg/dL Total Creatine Kinase 576 H (30-135) U/L CK-MB (CK-2) 9.5 H* (0.0-2.4) ng/mL Troponin I 0.069 H* (0.000-0.034) ng/mL CSF RBC (0-10) u/L CSF Glucose (40-70) mg/dL CSF Total Protein (12-60) mg/dL Microbiology - Last 24 Hours (Table) 10/11/16 06:40 CSF Gram Stain - Preliminary Cerebral Spinal Fluid 10/11/16 06:40 Fungal Culture - Preliminary Cerebral Spinal Fluid 10/11/16 03:13 Urine Culture - Preliminary Urine,Catheterized Laboratory Results WBC 10.1 k/uL (3.8-10.6) 10/11/16 06:51 RBC 3.81 m/uL (3.80-5.40) 10/11/16 06:51 Hgb 11.3 gm/dL (11.4-16.0) L 10/11/16 06:51 Hct 34.3 % (34.0-46.0) 10/11/16 06:51 MCV 90.0 fL (80.0-100.0) 10/11/16 06:51 MCH 29.8 pg (25.0-35.0) 10/11/16 06:51 MCHC 33.1 g/dL (31.0-37.0) 10/11/16 06:51 RDW 13.7 % (11.5-15.5) 10/11/16 06:51 Plt Count 273 k/uL (150-450) 10/11/16 06:51 Neutrophils % 76 % 10/11/16 06:51 Lymphocytes % 11 % 10/11/16 06:51 Monocytes % 10 % 10/11/16 06:51 Eosinophils % 0 % 10/11/16 06:51 Basophils % 0 % 10/11/16 06:51 Neutrophils # 7.7 k/uL (1.3-7.7) 10/11/16 06:51 Lymphocytes # 1.1 k/uL (1.0-4.8) 10/11/16 06:51 Monocytes # 1.0 k/uL (0-1.0) 10/11/16 06:51 Eosinophils # 0.0 k/uL (0-0.7) 10/11/16 06:51 Basophils # 0.0 k/uL (0-0.2) 10/11/16 06:51 PT 11.1 sec (9.0-12.0) 10/10/16 21:10 INR 1.1 (<1.1) 10/10/16 21:10 APTT 25.3 sec (22.0-30.0) 10/10/16 21:10 D-Dimer 1.29 mg/L FEU (<0.60) H 10/10/16 13:45 Sample Site RRAD 10/10/16 17:01 ABG pH 7.51 (7.35-7.45) H 10/10/16 17:01 ABG pCO2 22 mmHg (35-45) L 10/10/16 17:01 ABG pO2 103 mmHg (83-108) 10/10/16 17:01 ABG HCO3 18 mmol/L (21-25) L 10/10/16 17:01 ABG Total CO2 18 mmol/L (19-24) L 10/10/16 17:01 ABG O2 Saturation 99.0 % (94-97) H 10/10/16 17:01 ABG Base Excess -4.9 mmol/L 10/10/16 17:01 VBG pH 7.37 (7.31-7.41) 10/10/16 21:10 VBG pCO2 34 mmHg (37-51) L 10/10/16 21:10 VBG HCO3 19 mmol/L (24-28) L 10/10/16 21:10 FiO2 28 % 10/10/16 17:01 Sodium 127 mmol/L (137-145) L 10/11/16 06:51 Potassium 3.8 mmol/L (3.5-5.1) 10/11/16 06:51 Chloride 100 mmol/L (98-107) 10/11/16 06:51 Carbon Dioxide 19 mmol/L (22-30) L 10/11/16 06:51 Anion Gap 8 mmol/L 10/11/16 06:51 BUN 10 mg/dL (7-17) 10/11/16 06:51 Creatinine 0.47 mg/dL (0.52-1.04) L 10/11/16 06:51 Est GFR (MDRD) Af Amer >60 (>60 ml/min/1.73 sqM) 10/11/16 06:51 Est GFR (MDRD) Non-Af >60 (>60 ml/min/1.73 sqM) 10/11/16 06:51 Glucose 125 mg/dL (74-99) H 10/11/16 06:51 POC Glucose (mg/dL) 106 mg/dL (75-99) H 10/11/16 16:51 POC Glu Marketing Services Manager Carmen Lanier 10/11/16 16:51 Plasma Lactic Acid Tayo 0.9 mmol/L (0.7-2.0) 10/11/16 06:51 Calcium 7.1 mg/dL (8.4-10.2) L 10/11/16 06:51 Phosphorus 2.6 mg/dL (2.5-4.5) 10/11/16 06:51 Magnesium 1.5 mg/dL (1.6-2.3) L 10/10/16 21:10 Total Bilirubin 0.5 mg/dL (0.2-1.3) 10/10/16 21:10 AST 31 U/L (14-36) 10/10/16 21:10 ALT 31 U/L (9-52) 10/10/16 21:10 Alkaline Phosphatase 55 U/L (38-126) 10/10/16 21:10 Total Creatine Kinase 576 U/L (30-135) H 10/11/16 08:42 CK-MB (CK-2) 9.5 ng/mL (0.0-2.4) H* 10/11/16 08:42 CK-MB (CK-2) Rel Index 1.6 10/11/16 08:42 Troponin I 0.069 ng/mL (0.000-0.034) H* 10/11/16 08:42 Total Protein 6.7 g/dL (6.3-8.2) 10/10/16 21:10 Albumin 3.5 g/dL (3.5-5.0) 10/10/16 21:10 TSH 3.950 mIU/L (0.465-4.680) 10/10/16 13:45 Cortisol 47 ug/dL 10/10/16 21:10 Urine Color Yellow 10/10/16 13:45 Urine Appearance Clear (Clear) 10/10/16 13:45 Urine pH 7.0 (5.0-8.0) 10/10/16 13:45 Ur Specific [place] 1.013 (1.001-1.035) 10/10/16 13:45 Urine Protein 2+ (Negative) H 10/10/16 13:45 Urine Glucose (UA) Negative (Negative) 10/10/16 13:45 Urine Ketones 2+ (Negative) H 10/10/16 13:45 Urine Blood Negative (Negative) 10/10/16 13:45 Urine Nitrate Negative (Negative) 10/10/16 13:45 Urine Bilirubin Negative (Negative) 10/10/16 13:45 Urine Urobilinogen <2.0 mg/dL (<2.0) 10/10/16 13:45 Ur Leukocyte Esterase Negative (Negative) 10/10/16 13:45 Urine WBC 1 /hpf (0-5) 10/10/16 13:45 Ur Squamous Epith Cells <1 /hpf (0-4) 10/10/16 13:45 Urine Mucus Rare /hpf (None) H 10/10/16 13:45 CSF Tube Number 4 10/11/16 06:40 CSF Volume 1.5 10/11/16 06:40 CSF Appearance Clear 10/11/16 06:40 CSF Color Colorless 10/11/16 06:40 CSF RBC 110 u/L (0-10) H 10/11/16 06:40 CSF Tot Nucleated Cells 3 u/L (0-5) 10/11/16 06:40 CSF Crenated Cells 2 % 10/11/16 06:40 CSF Fresh RBCs 98 % 10/11/16 06:40 CSF Glucose 80 mg/dL (40-70) H 10/11/16 06:40 CSF Total Protein 85 mg/dL (12-60) H 10/11/16 06:40 Salicylates <1.0 mg/dL 10/10/16 13:45 Urine Opiates Screen Detected (NotDetected) H 10/10/16 13:45 Ur Oxycodone Screen Not Detected (NotDetected) 10/10/16 13:45 Urine Methadone Screen Not Detected (NotDetected) 10/10/16 13:45 Ur Propoxyphene Screen Not Detected (NotDetected) 10/10/16 13:45 Acetaminophen <10.0 ug/mL 10/10/16 13:45 Ur Barbiturates Screen Not Detected (NotDetected) 10/10/16 13:45 U Tricyclic Antidepress Not Detected (NotDetected) 10/10/16 13:45 Ur Phencyclidine Scrn Not Detected (NotDetected) 10/10/16 13:45 Ur Amphetamines Screen Not Detected (NotDetected) 10/10/16 13:45 U Methamphetamines Scrn Not Detected (NotDetected) 10/10/16 13:45 U Benzodiazepines Scrn Not Detected (NotDetected) 10/10/16 13:45 Urine Cocaine Screen Not Detected (NotDetected) 10/10/16 13:45 U Marijuana (THC) Screen Not Detected (NotDetected) 10/10/16 13:45 Influenza Type A RNA Not Detected (Not Detectd) 10/10/16 21:17 Influenza Type B (PCR) Not Detected (Not Detectd) 10/10/16 21:17 Laboratory Results WBC 10.1 k/uL (3.8-10.6) 10/11/16 06:51 RBC 3.81 m/uL (3.80-5.40) 10/11/16 06:51 Hgb 11.3 gm/dL (11.4-16.0) L 10/11/16 06:51 Hct 34.3 % (34.0-46.0) 10/11/16 06:51 MCV 90.0 fL (80.0-100.0) 10/11/16 06:51 MCH 29.8 pg (25.0-35.0) 10/11/16 06:51 MCHC 33.1 g/dL (31.0-37.0) 10/11/16 06:51 RDW 13.7 % (11.5-15.5) 10/11/16 06:51 Plt Count 273 k/uL (150-450) 10/11/16 06:51 Neutrophils % 76 % 10/11/16 06:51 Lymphocytes % 11 % 10/11/16 06:51 Monocytes % 10 % 10/11/16 06:51 Eosinophils % 0 % 10/11/16 06:51 Basophils % 0 % 10/11/16 06:51 Neutrophils # 7.7 k/uL (1.3-7.7) 10/11/16 06:51 Lymphocytes # 1.1 k/uL (1.0-4.8) 10/11/16 06:51 Monocytes # 1.0 k/uL (0-1.0) 10/11/16 06:51 Eosinophils # 0.0 k/uL (0-0.7) 10/11/16 06:51 Basophils # 0.0 k/uL (0-0.2) 10/11/16 06:51 PT 11.1 sec (9.0-12.0) 10/10/16 21:10 INR 1.1 (<1.1) 10/10/16 21:10 APTT 25.3 sec (22.0-30.0) 10/10/16 21:10 D-Dimer 1.29 mg/L FEU (<0.60) H 10/10/16 13:45 Sample Site RRAD 10/10/16 17:01 ABG pH 7.51 (7.35-7.45) H 10/10/16 17:01 ABG pCO2 22 mmHg (35-45) L 10/10/16 17:01 ABG pO2 103 mmHg (83-108) 10/10/16 17:01 ABG HCO3 18 mmol/L (21-25) L 10/10/16 17:01 ABG Total CO2 18 mmol/L (19-24) L 10/10/16 17:01 ABG O2 Saturation 99.0 % (94-97) H 10/10/16 17:01 ABG Base Excess -4.9 mmol/L 10/10/16 17:01 VBG pH 7.37 (7.31-7.41) 10/10/16 21:10 VBG pCO2 34 mmHg (37-51) L 10/10/16 21:10 VBG HCO3 19 mmol/L (24-28) L 10/10/16 21:10 FiO2 28 % 10/10/16 17:01 Sodium 127 mmol/L (137-145) L 10/11/16 06:51 Potassium 3.8 mmol/L (3.5-5.1) 10/11/16 06:51 Chloride 100 mmol/L (98-107) 10/11/16 06:51 Carbon Dioxide 19 mmol/L (22-30) L 10/11/16 06:51 Anion Gap 8 mmol/L 10/11/16 06:51 BUN 10 mg/dL (7-17) 10/11/16 06:51 Creatinine 0.47 mg/dL (0.52-1.04) L 10/11/16 06:51 Est GFR (MDRD) Af Amer >60 (>60 ml/min/1.73 sqM) 10/11/16 06:51 Est GFR (MDRD) Non-Af >60 (>60 ml/min/1.73 sqM) 10/11/16 06:51 Glucose 125 mg/dL (74-99) H 10/11/16 06:51 POC Glucose (mg/dL) 106 mg/dL (75-99) H 10/11/16 16:51 POC Glu Marketing Services Manager ID Carmen Erwin 10/11/16 16:51 Plasma Lactic Acid Tayo 0.9 mmol/L (0.7-2.0) 10/11/16 06:51 Calcium 7.1 mg/dL (8.4-10.2) L 10/11/16 06:51 Phosphorus 2.6 mg/dL (2.5-4.5) 10/11/16 06:51 Magnesium 1.5 mg/dL (1.6-2.3) L 10/10/16 21:10 Total Bilirubin 0.5 mg/dL (0.2-1.3) 10/10/16 21:10 AST 31 U/L (14-36) 10/10/16 21:10 ALT 31 U/L (9-52) 10/10/16 21:10 Alkaline Phosphatase 55 U/L (38-126) 10/10/16 21:10 Total Creatine Kinase 576 U/L (30-135) H 10/11/16 08:42 CK-MB (CK-2) 9.5 ng/mL (0.0-2.4) H* 10/11/16 08:42 CK-MB (CK-2) Rel Index 1.6 10/11/16 08:42 Troponin I 0.069 ng/mL (0.000-0.034) H* 10/11/16 08:42 Total Protein 6.7 g/dL (6.3-8.2) 10/10/16 21:10 Albumin 3.5 g/dL (3.5-5.0) 10/10/16 21:10 TSH 3.950 mIU/L (0.465-4.680) 10/10/16 13:45 Cortisol 47 ug/dL 10/10/16 21:10 Urine Color Yellow 10/10/16 13:45 Urine Appearance Clear (Clear) 10/10/16 13:45 Urine pH 7.0 (5.0-8.0) 10/10/16 13:45 Ur Specific [place] 1.013 (1.001-1.035) 10/10/16 13:45 Urine Protein 2+ (Negative) H 10/10/16 13:45 Urine Glucose (UA) Negative (Negative) 10/10/16 13:45 Urine Ketones 2+ (Negative) H 10/10/16 13:45 Urine Blood Negative (Negative) 10/10/16 13:45 Urine Nitrate Negative (Negative) 10/10/16 13:45 Urine Bilirubin Negative (Negative) 10/10/16 13:45 Urine Urobilinogen <2.0 mg/dL (<2.0) 10/10/16 13:45 Ur Leukocyte Esterase Negative (Negative) 10/10/16 13:45 Urine WBC 1 /hpf (0-5) 10/10/16 13:45 Ur Squamous Epith Cells <1 /hpf (0-4) 10/10/16 13:45 Urine Mucus Rare /hpf (None) H 10/10/16 13:45 CSF Tube Number 4 10/11/16 06:40 CSF Volume 1.5 10/11/16 06:40 CSF Appearance Clear 10/11/16 06:40 CSF Color Colorless 10/11/16 06:40 CSF RBC 110 u/L (0-10) H 10/11/16 06:40 CSF Tot Nucleated Cells 3 u/L (0-5) 10/11/16 06:40 CSF Crenated Cells 2 % 10/11/16 06:40 CSF Fresh RBCs 98 % 10/11/16 06:40 CSF Glucose 80 mg/dL (40-70) H 10/11/16 06:40 CSF Total Protein 85 mg/dL (12-60) H 10/11/16 06:40 Salicylates <1.0 mg/dL 10/10/16 13:45 Urine Opiates Screen Detected (NotDetected) H 10/10/16 13:45 Ur Oxycodone Screen Not Detected (NotDetected) 10/10/16 13:45 Urine Methadone Screen Not Detected (NotDetected) 10/10/16 13:45 Ur Propoxyphene Screen Not Detected (NotDetected) 10/10/16 13:45 Acetaminophen <10.0 ug/mL 10/10/16 13:45 Ur Barbiturates Screen Not Detected (NotDetected) 10/10/16 13:45 U Tricyclic Antidepress Not Detected (NotDetected) 10/10/16 13:45 Ur Phencyclidine Scrn Not Detected (NotDetected) 10/10/16 13:45 Ur Amphetamines Screen Not Detected (NotDetected) 10/10/16 13:45 U Methamphetamines Scrn Not Detected (NotDetected) 10/10/16 13:45 U Benzodiazepines Scrn Not Detected (NotDetected) 10/10/16 13:45 Urine Cocaine Screen Not Detected (NotDetected) 10/10/16 13:45 U Marijuana (THC) Screen Not Detected (NotDetected) 10/10/16 13:45 Influenza Type A RNA Not Detected (Not Detectd) 10/10/16 21:17 Influenza Type B (PCR) Not Detected (Not Detectd) 10/10/16 21:17 Laboratory Results WBC 10.1 k/uL (3.8-10.6) 10/11/16 06:51 RBC 3.81 m/uL (3.80-5.40) 10/11/16 06:51 Hgb 11.3 gm/dL (11.4-16.0) L 10/11/16 06:51 Hct 34.3 % (34.0-46.0) 10/11/16 06:51 MCV 90.0 fL (80.0-100.0) 10/11/16 06:51 MCH 29.8 pg (25.0-35.0) 10/11/16 06:51 MCHC 33.1 g/dL (31.0-37.0) 10/11/16 06:51 RDW 13.7 % (11.5-15.5) 10/11/16 06:51 Plt Count 273 k/uL (150-450) 10/11/16 06:51 Neutrophils % 76 % 10/11/16 06:51 Lymphocytes % 11 % 10/11/16 06:51 Monocytes % 10 % 10/11/16 06:51 Eosinophils % 0 % 10/11/16 06:51 Basophils % 0 % 10/11/16 06:51 Neutrophils # 7.7 k/uL (1.3-7.7) 10/11/16 06:51 Lymphocytes # 1.1 k/uL (1.0-4.8) 10/11/16 06:51 Monocytes # 1.0 k/uL (0-1.0) 10/11/16 06:51 Eosinophils # 0.0 k/uL (0-0.7) 10/11/16 06:51 Basophils # 0.0 k/uL (0-0.2) 10/11/16 06:51 PT 11.1 sec (9.0-12.0) 10/10/16 21:10 INR 1.1 (<1.1) 10/10/16 21:10 APTT 25.3 sec (22.0-30.0) 10/10/16 21:10 D-Dimer 1.29 mg/L FEU (<0.60) H 10/10/16 13:45 Sample Site RRAD 10/10/16 17:01 ABG pH 7.51 (7.35-7.45) H 10/10/16 17:01 ABG pCO2 22 mmHg (35-45) L 10/10/16 17:01 ABG pO2 103 mmHg (83-108) 10/10/16 17:01 ABG HCO3 18 mmol/L (21-25) L 10/10/16 17:01 ABG Total CO2 18 mmol/L (19-24) L 10/10/16 17:01 ABG O2 Saturation 99.0 % (94-97) H 10/10/16 17:01 ABG Base Excess -4.9 mmol/L 10/10/16 17:01 VBG pH 7.37 (7.31-7.41) 10/10/16 21:10 VBG pCO2 34 mmHg (37-51) L 10/10/16 21:10 VBG HCO3 19 mmol/L (24-28) L 10/10/16 21:10 FiO2 28 % 10/10/16 17:01 Sodium 127 mmol/L (137-145) L 10/11/16 06:51 Potassium 3.8 mmol/L (3.5-5.1) 10/11/16 06:51 Chloride 100 mmol/L (98-107) 10/11/16 06:51 Carbon Dioxide 19 mmol/L (22-30) L 10/11/16 06:51 Anion Gap 8 mmol/L 10/11/16 06:51 BUN 10 mg/dL (7-17) 10/11/16 06:51 Creatinine 0.47 mg/dL (0.52-1.04) L 10/11/16 06:51 Est GFR (MDRD) Af Amer >60 (>60 ml/min/1.73 sqM) 10/11/16 06:51 Est GFR (MDRD) Non-Af >60 (>60 ml/min/1.73 sqM) 10/11/16 06:51 Glucose 125 mg/dL (74-99) H 10/11/16 06:51 POC Glucose (mg/dL) 106 mg/dL (75-99) H 10/11/16 16:51 POC Glu Marketing Services Manager ID Carmen Erwin 10/11/16 16:51 Plasma Lactic Acid Tayo 0.9 mmol/L (0.7-2.0) 10/11/16 06:51 Calcium 7.1 mg/dL (8.4-10.2) L 10/11/16 06:51 Phosphorus 2.6 mg/dL (2.5-4.5) 10/11/16 06:51 Magnesium 1.5 mg/dL (1.6-2.3) L 10/10/16 21:10 Total Bilirubin 0.5 mg/dL (0.2-1.3) 10/10/16 21:10 AST 31 U/L (14-36) 10/10/16 21:10 ALT 31 U/L (9-52) 10/10/16 21:10 Alkaline Phosphatase 55 U/L (38-126) 10/10/16 21:10 Total Creatine Kinase 576 U/L (30-135) H 10/11/16 08:42 CK-MB (CK-2) 9.5 ng/mL (0.0-2.4) H* 10/11/16 08:42 CK-MB (CK-2) Rel Index 1.6 10/11/16 08:42 Troponin I 0.069 ng/mL (0.000-0.034) H* 10/11/16 08:42 Total Protein 6.7 g/dL (6.3-8.2) 10/10/16 21:10 Albumin 3.5 g/dL (3.5-5.0) 10/10/16 21:10 TSH 3.950 mIU/L (0.465-4.680) 10/10/16 13:45 Cortisol 47 ug/dL 10/10/16 21:10 Urine Color Yellow 10/10/16 13:45 Urine Appearance Clear (Clear) 10/10/16 13:45 Urine pH 7.0 (5.0-8.0) 10/10/16 13:45 Ur Specific [place] 1.013 (1.001-1.035) 10/10/16 13:45 Urine Protein 2+ (Negative) H 10/10/16 13:45 Urine Glucose (UA) Negative (Negative) 10/10/16 13:45 Urine Ketones 2+ (Negative) H 10/10/16 13:45 Urine Blood Negative (Negative) 10/10/16 13:45 Urine Nitrate Negative (Negative) 10/10/16 13:45 Urine Bilirubin Negative (Negative) 10/10/16 13:45 Urine Urobilinogen <2.0 mg/dL (<2.0) 10/10/16 13:45 Ur Leukocyte Esterase Negative (Negative) 10/10/16 13:45 Urine WBC 1 /hpf (0-5) 10/10/16 13:45 Ur Squamous Epith Cells <1 /hpf (0-4) 10/10/16 13:45 Urine Mucus Rare /hpf (None) H 10/10/16 13:45 CSF Tube Number 4 10/11/16 06:40 CSF Volume 1.5 10/11/16 06:40 CSF Appearance Clear 10/11/16 06:40 CSF Color Colorless 10/11/16 06:40 CSF RBC 110 u/L (0-10) H 10/11/16 06:40 CSF Tot Nucleated Cells 3 u/L (0-5) 10/11/16 06:40 CSF Crenated Cells 2 % 10/11/16 06:40 CSF Fresh RBCs 98 % 10/11/16 06:40 CSF Glucose 80 mg/dL (40-70) H 10/11/16 06:40 CSF Total Protein 85 mg/dL (12-60) H 10/11/16 06:40 Salicylates <1.0 mg/dL 10/10/16 13:45 Urine Opiates Screen Detected (NotDetected) H 10/10/16 13:45 Ur Oxycodone Screen Not Detected (NotDetected) 10/10/16 13:45 Urine Methadone Screen Not Detected (NotDetected) 10/10/16 13:45 Ur Propoxyphene Screen Not Detected (NotDetected) 10/10/16 13:45 Acetaminophen <10.0 ug/mL 10/10/16 13:45 Ur Barbiturates Screen Not Detected (NotDetected) 10/10/16 13:45 U Tricyclic Antidepress Not Detected (NotDetected) 10/10/16 13:45 Ur Phencyclidine Scrn Not Detected (NotDetected) 10/10/16 13:45 Ur Amphetamines Screen Not Detected (NotDetected) 10/10/16 13:45 U Methamphetamines Scrn Not Detected (NotDetected) 10/10/16 13:45 U Benzodiazepines Scrn Not Detected (NotDetected) 10/10/16 13:45 Urine Cocaine Screen Not Detected (NotDetected) 10/10/16 13:45 U Marijuana (THC) Screen Not Detected (NotDetected) 10/10/16 13:45 Influenza Type A RNA Not Detected (Not Detectd) 10/10/16 21:17 Influenza Type B (PCR) Not Detected (Not Detectd) 10/10/16 21:17 Microbiology 10/11/16 06:40 Cerebral Spinal Fluid CSF Gram Stain - Preliminary 10/11/16 06:40 Cerebral Spinal Fluid Fungal Culture - Preliminary 10/11/16 03:13 Urine,Catheterized Urine Culture - Preliminary Assessment and Plan (1) Varicella zoster Narrative/Plan: 85-year-old female presents to Hospital of altered mental status. She normally is highly functional with her elderly in their home. She has a recent history of varicella-zoster on the left flank. Treated with antiviral therapy and some pain control. Her presentation she had marked the altered mental status. Is now considerably improved. Lumbar puncture looks modestly normal. But there was elevated protein. MRI is been performed which is normal. 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 Intravenous acyclovir will continue. Does not appear to have other significant bacterial infection at this point in time. And other antibiotic therapy may be discontinued at this time. The cerebral spinal fluid has been sent to the laboratory for PCR for Varicella. If it is comeback is negative then acyclovir may be discontinued at that time also. Patient has had a significant improvement. Status: Acute (2) Acute metabolic encephalopathy Status: Acute (3) Fever Status: Acute
[2016-10-11 20:56] LABS: Glucose,Whole Blood 125 mg/dL (75-99)
[2016-10-12] MEDS ORDERED: cefTRIAXone 2,000 MG in SODIUM CHLORIDE 0.9% 100 ML IVPB SCH ×2
[2016-10-12] MEDS: SODIUM CHLORIDE 0.9% IV SCH ×3 (00:14→22:04)
[2016-10-12] MEDS: ACYCLOVIR SODIUM IV SCH ×3 (00:14→22:04)
[2016-10-12] MEDS: VANCOMYCIN 1,250 MG in SODIUM CHLORIDE 0.9% 250 ML IVPB SCH ×2 (02:07→22:05)
[2016-10-12] MEDS: SODIUM CHLORIDE 0.9% 1,000 ML IV SCH ×3 (02:08→13:43)
[2016-10-12 07:27] LABS: Glucose,Whole Blood 111 mg/dL (75-99)
[2016-10-12] MEDS: LEVOTHYROXINE IVP 100 MCG/5 ML VIAL IV SCH (08:26)
[2016-10-12] MEDS: PANTOPRAZOLE 40 MG/10 ML VIAL IV SCH (08:26)
[2016-10-12] MEDS: HEPARIN SODIUM,PORCINE 5,000 UNIT/ML 1 ML VIAL SQ SCH (08:26)
[2016-10-12 08:33] LABS: Basophils % (A) 0 %; CH 30.3; Eosinophils % (A) 0 %; HCT 34.7 % (34.0-46.0); HDW 2.36; HGB 11.8 gm/dL (11.4-16.0); Luc # (Auto) 0.24; Luc % (Auto) 2; Lymphocytes # (A) 0.6 k/uL (1.0-4.8); Lymphocytes % (A) 5 %; MCH 30.5 pg (25.0-35.0); MCHC 34.1 g/dL (31.0-37.0); MCV 89.5 fL (80.0-100.0); Mean Platelet Volume 7.1; Monocytes % (A) 10 %; Neutrophils # (A) 8.5 k/uL (1.3-7.7); Neutrophils % (A) 82 %; RBC 3.87 m/uL (3.80-5.40); RDW 13.9 % (11.5-15.5); WBC 10.3 k/uL (3.8-10.6); WBC (Perox) 10.92
[2016-10-12 08:40] LABS: Calcium 7.2 mg/dL (8.4-10.2); Magnesium 2.2 mg/dL (1.6-2.3); Phosphorous 4.4 mg/dL (2.5-4.5); Potassium 3.8 mmol/L (3.5-5.1)
[2016-10-12] MEDS: IPRATROPIUM 0.5 MG/2.5 ML NEBU INHALATION SCH (08:57)
[2016-10-12] MEDS: LEVALBUTEROL NEB (CONC) 1.25 MG/0.5 ML AMP INHALATION SCH (08:58)
[2016-10-12] MEDS: IPRATROPIUM-ALBUTEROL 3 ML NEB INHALATION SCH ×2 (11:36→18:19)
--- NOTE | 2016-10-12 12:43 | PN ---
DATE OF SERVICE: 10/11/2016 This 85-year-old woman was admitted with status post recent episode of herpes zoster on the left D4 dermatome. 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 Lumbar puncture has been done to protein. Multiple consultants are following the patient closely including Dr. Rdz, cardiology as well as neurology. Bacterial meningitis thought to be likely. At this time patient started on broad spectrum IV antibiotics also. Infectious encephalopathy was also noted. The brain MRI was also done which showed no convincing evidence for acute infarct, mild to moderate atrophy, mild to moderate chronic small ischemia was also noted. PAST MEDICAL HISTORY: Reviewed. REVIEW OF SYSTEMS: CARDIOVASCULAR: As mentioned earlier. : No dysuria. NERVOUS SYSTEM: As mentioned earlier. Sensorium definitely improved. Current medications are: 1. Tylenol p.r.n. 2. Acyclovir IV t.i.d. 3. Albuterol q.i.d. 4. Heparin b.i.d. 5. Xopenex. 6. Levothyroxine. 7. Narcan 8. Zofran. 9. Protonix. 10. Vancomycin. PHYSICAL EXAMINATION: The patient is alert and oriented x3. Pulse 99, blood pressure 142/60, respiratory rate 16, temperature 98.8, pulse ox 90% on 2 liters. HEENT: Conjunctivae pink, NECK: No jugular venous distention. CARDIOVASCULAR: S1 and S2, muffled. RESPIRATORY: Breath sounds diminished at the bases. A few scattered rhonchi, no crackles. ABDOMEN: Soft, obese, nontender. LEGS: No edema, no swelling. NERVOUS SYSTEM: Mild. SKIN: Left T4 dermatome persistent rash. LABS: WBC ntd, hemoglobin 11.3. Sodium 137. Troponin 0.069. CSF noted. ASSESSMENT: 1. 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 2. 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 3. Herpes zoster acute left D4 dermatome 4. Change in mental status, metabolic encephalopathy. 5. Hypomagnesemia. 6. Increased WBC. 7. Acute respiratory alkalosis. 8. Hyponatremia. 9. Hypochloremia. 10. Increased random blood sugar. 11. Obesity. 12. Troponin 0.05, indeterminate. 13. History of recent chest pain. 14. History of asthma, chronic obstructive pulmonary disease. 15. Hypertension. 16. History of degenerative joint disease. 17. History of sleep apnea. 18. History of section. 19. History of motion sickness. 20. NO CODE, NO CPR, NO VENT. RECOMMENDATIONS AND DISCUSSION: This 85-year-old woman 85-year-old woman presented with multiple complex medical issues, will monitor the patient closely, continue with the current medication and treatment. Otherwise, at this time I would recommend continuing with broad-spectrum antibiotics and antivirals and infectious disease evaluation. Continue to monitor. Continue with the DVT prophylaxis. See orders for further details. Cardiology also has seen the patient. Brain MRI has been noted and reviewed. Mild elevation of troponin could be tied to event per cardiology. Otherwise, prognosis once again is guarded. Discussed with the family at length. Further recommendations to follow. MTDD
--- NOTE | 2016-10-12 12:53 | CT ---
EXAMINATION TYPE: CT brain wo con DATE OF EXAM: 10/12/2016 12:44 PM COMPARISON: 10/10/2016 INDICATION: Altered mental status DLP: 1047.110 mGycm, Automated exposure control for dose reduction was used. CONTRAST: None CT of the brain is performed utilizing 3 mm thick sections through the posterior fossa and 3 mm thick sections through the remaining calvarium. Study is performed within 24 hours of arrival to the hosp ital. No abnormal hyperdensity is present to suggest an acute intracranial hemorrhage. No mass lesion is evident. No acute infarcts are evident. Mild periventricular white matter hypodensity is present, likely on th e basis of chronic white matter ischemic changes. Ventricles and sulci are mildly prominent for the patient age. No significant interval change is bossman dent. Paranasal sinuses and mastoid air cells within the [id number] are clear. IMPRESSIONS: 1. Stable chronic appearing periventricular white matter ischemic type changes with age-related atr ophy.
--- NOTE | 2016-10-12 13:19 | P.PN ---
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 This is an 85-year-old female with history of multiple medical problems including essential hypertension, COPD, degenerative joint disease, obstructive sleep apnea syndrome, patient was brought into the emergency room by EMS because of her family concern. Apparently the son stopped by to see his parents and he noted that his mom was unable to respond to him. She was recently diagnosed as having shingles involving her left chest area and she was placed on acyclovir, she was also on [place]. At any rate the patient was evaluated in the ER, she was definitely confused, noncommunicative, and she had elevated temp, but she had a relatively normal CBC, she had a low sodium of 122. There was a definite concern about the possibility of viral encephalitis specially with her most recent history of herpes zoster infection. The ER physician attempted to perform a lumbar puncture, however he was not successful. Patient was then admitted to the hospital placed on empiric treatment for viral and bacterial encephalitis/meningitis, infectious disease consultation was initiated, and I was asked to see the patient on consultation since she was admitted to the ICU. Upon my evaluation, patient was noted to be quite responsive, oriented to place, but not to time and year. Her sodium corrected a bit from 122 up to 127. She had no evidence of anion gap, and her lactic acidosis was 2.0 on admission, and corrected down to 0.9 overnight. Workup in the ER included a CT of the chest which was negative for pulmonary embolism. Chest x-ray which was normal. Brain CT which was also normal. MRI of the brain was also done and there was no convincing evidence of acute infarct , or any suggestion of encephalitis/meningitis. I reviewed the results of her spinal fluid, and it seemed to be relatively normal except for slightly elevated protein otherwise the spinal fluid was clear. Hence I have made arrangements for the patient to be transferred out of the ICU and infectious disease to follow. In the meantime we'll continue to correct her hyponatremia which seems to be most likely hypovolemic in nature. Patient was reevaluated today on 10/12/2016, and I saw her today on the fourth floor. Patient was noted to be awake, responsive, knew the place, but she thinks the year is 1953. She knew her name and date. Patient was noted also to have some intermittent episodes of productive cough, noted to have some difficulty clearing her secretions. Labs from today were reviewed she had a relatively normal CBC. Sodium seems to be improving up to 129. Renal profile remains abnormal with a BUN of 22 and creatinine of 1.8. After evaluating the patient, I discontinued all her narcotics and sedatives, hoping that her mental status will gradually improve off these medications. In the meantime the patient remains on antibiotics and antiviral therapy as per Dr. Dean who is still concerned about viral encephalitis related to hepatocellular zoster infection. Objective - Vital Signs Vital signs: Vital Signs Temp 97.0 F L 10/12/16 07:00 Pulse 98 10/12/16 07:00 Resp 22 10/12/16 08:00 BP 157/76 10/12/16 07:00 Pulse Ox 93 L 10/12/16 07:00 Intake & Output 10/11/16 10/12/16 10/12/16 18:59 06:59 18:59 Intake Total 1500 500 120 Output Total 365 1300 Balance 1135 -800 120 Intake: IV 700 0.9 nacl 700 Intake, IV Titration 800 Amount Acyclovir Sodium 1,300 mg 250 In Sodium Chloride 0.9% 250 ml @ 250 mls/hr IV Q8HR [facility] Rx#:[id number] Magnesium Sulfate-D5w Pmx 100 1 gm In Dextrose/Water 1 100ml.bag @ 100 mls/hr IVPB Q1H [facility] Rx#: [id number] Sodium Chloride 0.9% 1, 100 000 ml @ 100 mls/hr IV . Q10H [facility] Rx#:[id number] Vancomycin 1,250 mg In 250 Sodium Chloride 0.9% 250 ml @ 125 mls/hr IVPB Q16H [facility] Rx#:[id number] cefTRIAXone 2,000 mg In 100 Sodium Chloride 0.9% 100 ml @ 100 mls/hr IVPB Q12HR@0000,1200 [facility] Rx#: [id number] Oral 500 120 Output: Urine 365 1300 Other: Voiding Method Indwelling Catheter Indwelling Catheter Indwelling Catheter # Voids 0 # Bowel Movements 0 - Exam Physical Exam: Revealed an 85-year-old in no distress HEENT:[Neck is supple.] [No neck masses.] [No thyromegaly.] [No JVD.] Chest: [Clear throughout, minimal crackles at the bases. no rhonchi, no wheezes.] Cardiac Exam: [Normal S1 and S2, no S3 gallop, no murmur.] Abdomen: [Soft, nontender, no megaly, no rebound, no guarding, normal bowel sounds.] Extremities: [No clubbing, no edema, no cyanosis.] Neurological Exam: Patient is arousable, follows simple instructions, pupils are both reactive to light, patient is a bit confused to the time of the but she is oriented to place and person. - Labs CBC & Chem 7: 10/12/16 07:54 10/12/16 07:54 Labs: Abnormal Lab Results - Last 24 Hours (Table) 10/11/16 10/11/16 10/12/16 Range/Units 16:51 20:34 07:08 Neutrophils # (1.3-7.7) k/uL Lymphocytes # (1.0-4.8) k/uL Sodium (137-145) mmol/L Carbon Dioxide (22-30) mmol/L BUN (7-17) mg/dL Creatinine (0.52-1.04) mg/dL Glucose (74-99) mg/dL POC Glucose (mg/dL) 106 H 125 H 111 H (75-99) mg/dL Calcium (8.4-10.2) mg/dL 10/12/16 10/12/16 Range/Units 07:54 07:54 Neutrophils # 8.5 H (1.3-7.7) k/uL Lymphocytes # 0.6 L (1.0-4.8) k/uL Sodium 129 L (137-145) mmol/L Carbon Dioxide 15 L (22-30) mmol/L BUN 22 H (7-17) mg/dL Creatinine 1.80 H (0.52-1.04) mg/dL Glucose 115 H (74-99) mg/dL POC Glucose (mg/dL) (75-99) mg/dL Calcium 7.2 L (8.4-10.2) mg/dL Microbiology - Last 24 Hours (Table) 10/11/16 06:40 CSF Gram Stain - Preliminary Cerebral Spinal Fluid CSF Culture - Preliminary 10/11/16 06:40 Fungal Culture - Preliminary Cerebral Spinal Fluid 10/11/16 03:13 Urine Culture - Preliminary Urine,Catheterized Assessment and Plan Plan: Acute mental status change, most likely secondary to hyponatremia. And secondary to fever. This could also be secondary to opiates/[place] which was given for her pain secondary to varicella zoster dermatitis involving the left chest wall. The exact etiology of her fever is not clear, but could very well be related to her viral dermatitis. Based on the results of the spinal fluid, doubt any viral encephalitis , but not entirely ruled out. Patient was seen by infectious disease on consultation, please refer to full consultation as per Dr. Dean. Multiple comorbidities including COPD, essential hypertension, hypothyroidism, degenerative joint disease, and recent episode ofvaricella zoster dermatitis involving the left chest wall, one dermatome. These medical problems seem to be relatively stable at this point. Time with Patient: Less than 30
[2016-10-12 13:35] LABS: ABG Base Excess -10.1 mmol/L; ABG HCO3 14 mmol/L (21-25); ABG PCO2 26 mmHg (35-45); ABG PH 7.36 (7.35-7.45); ABG PO2 79 mmHg (83-108); ABG TCO2 15 mmol/L (19-24)
--- NOTE | 2016-10-12 13:37 | P.PN ---
Subjective Principal diagnosis: altered mental status This 85-year-old female continuing to be evaluated by the neurology service for altered mental status. Her initial presentation in the [facility] emergency room was 4. Of decreased responsiveness. Recall that she was recently diagnosed with shingles. She has been intermittently febrile since her admission. Infectious disease has evaluated and feels varicella-zoster to be the most likely. She remains on broad-spectrum antibiotics and acyclovir. She had been doing quite well until early this morning when her daughter noticed a decrease again in her mental status. At the time of my evaluation she is responding to questions but mostly inappropriate answers. She does seem quite confused. They are transferring her up to the ICU at the time of my evaluation due to her mental status and respiratory problems. Recall that CT and MRI of the brain showed no significant abnormalities. There was mild to moderate cerebral atrophy and moderate chronic small vessel ischemic changes. Objective - Vital Signs Vital signs: Vital Signs Temp 97.3 F L 10/12/16 13:00 Pulse 108 H 10/12/16 13:00 Resp 17 10/12/16 13:00 BP 164/82 10/12/16 13:00 Pulse Ox 97 10/12/16 13:00 Intake & Output 10/11/16 10/12/16 10/12/16 18:59 06:59 18:59 Intake Total 1500 500 320 Output Total 365 1300 75 Balance 1135 -800 245 Intake: IV 700 200 0.9 nacl 700 200 Intake, IV Titration 800 Amount Acyclovir Sodium 1,300 mg 250 In Sodium Chloride 0.9% 250 ml @ 250 mls/hr IV Q8HR [facility] Rx#:[id number] Magnesium Sulfate-D5w Pmx 100 1 gm In Dextrose/Water 1 100ml.bag @ 100 mls/hr IVPB Q1H [facility] Rx#: [id number] Sodium Chloride 0.9% 1, 100 000 ml @ 100 mls/hr IV . Q10H [facility] Rx#:[id number] Vancomycin 1,250 mg In 250 Sodium Chloride 0.9% 250 ml @ 125 mls/hr IVPB Q16H [facility] Rx#:[id number] cefTRIAXone 2,000 mg In 100 Sodium Chloride 0.9% 100 ml @ 100 mls/hr IVPB Q12HR@0000,1200 [facility] Rx#: [id number] Oral 500 120 Output: Urine 365 1300 75 Other: Voiding Method Indwelling Catheter Indwelling Catheter Indwelling Catheter # Voids 0 # Bowel Movements 0 - Constitutional General appearance: Present: no acute distress - EENT Eyes: Present: EOMI, PERRLA. Absent: abnormal pupil, ptosis - Neck Neck: Absent: rigidity - Respiratory Respiratory: negative: prolonged expiration, prolonged inspiration - Cardiovascular Rhythm: regular - Gastrointestinal General gastrointestinal: Absent: distended, tenderness - Neurologic Neurologic Comment(s): The patient is obtunded. She responds to simple commands. Speech seems normal. There is no facial asymmetry or lateralizing weakness. No tremors or seizure-like activities are seen. - Labs CBC & Chem 7: 10/12/16 07:54 10/12/16 07:54 Labs: Abnormal Lab Results - Last 24 Hours (Table) 10/11/16 10/11/16 10/12/16 Range/Units 16:51 20:34 07:08 Neutrophils # (1.3-7.7) k/uL Lymphocytes # (1.0-4.8) k/uL Sodium (137-145) mmol/L Carbon Dioxide (22-30) mmol/L BUN (7-17) mg/dL Creatinine (0.52-1.04) mg/dL Glucose (74-99) mg/dL POC Glucose (mg/dL) 106 H 125 H 111 H (75-99) mg/dL Calcium (8.4-10.2) mg/dL 10/12/16 10/12/16 Range/Units 07:54 07:54 Neutrophils # 8.5 H (1.3-7.7) k/uL Lymphocytes # 0.6 L (1.0-4.8) k/uL Sodium 129 L (137-145) mmol/L Carbon Dioxide 15 L (22-30) mmol/L BUN 22 H (7-17) mg/dL Creatinine 1.80 H (0.52-1.04) mg/dL Glucose 115 H (74-99) mg/dL POC Glucose (mg/dL) (75-99) mg/dL Calcium 7.2 L (8.4-10.2) mg/dL Microbiology - Last 24 Hours (Table) 10/11/16 03:13 Urine Culture - Final Urine,Catheterized 10/11/16 06:40 CSF Gram Stain - Preliminary Cerebral Spinal Fluid CSF Culture - Preliminary 10/11/16 06:40 Fungal Culture - Preliminary Cerebral Spinal Fluid Assessment and Plan (1) Infectious encephalopathy Status: Acute (2) Altered mental status Status: Acute (3) Delirium due to general medical condition Status: Acute (4) Fever Status: Acute (5) Hyponatremia Status: Acute (6) Acute metabolic encephalopathy Status: Acute Plan: Her altered mental status is likely an acute encephalopathy which is likely multifactorial. Due to her worsening and respiratory distress she is being transferred to the ICU at the time my evaluation. Steps are being taken to correctly metabolic abnormalities, she is on broad-spectrum antibiotics and antivirals, and infectious disease continues to follow. She was also given [place] which she is not accustomed to. This may have also contributed somewhat. Continue IV hydration continue neurological checks. I have ordered an EEG. We will continue to follow and make recommendations based on the above study. I reviewed the history and physical on the above patient. I have reviewed the above note, and agree.
[2016-10-12] MEDS ORDERED: VALPROATE SODIUM 1,000 MG in SODIUM CHLORIDE 0.9% 50 ML IVPB ONE (14:04)
--- NOTE | 2016-10-12 14:10 | XR ---
EXAMINATION TYPE: XR chest 1V portable DATE OF EXAM: 10/12/2016 1:46 PM COMPARISON: 10/10/2016 HISTORY: Possible aspiration pneumonia TECHNIQUE: Single frontal view of the chest is obtained. FINDINGS: There is no heart failure. There are no hilar masses. I see no definite pulmonary consolid ation. There is no evidence of pleural effusion. Thoracic aorta is atheromatous. There are chest lead s. IMPRESSION: No active cardiopulmonary disease. I do not see evidence for aspiration pneumonia. There is a large hiatal hernia noted.
[2016-10-12] MEDS ORDERED: MORPHINE SULFATE 4 MG/ML SYRINGE ONE (15:17)
[2016-10-12 16:07] VITALS: TEMP 98
[2016-10-12] MEDS ORDERED: MORPHINE SULFATE 2 MG/ML SYRINGE IVP PRN (17:00)
[2016-10-12] MEDS ORDERED: MORPHINE SULFATE (100 MG/2 ML) 100 MG in SODIUM CHLORIDE 0.9% 100 ML IV SCH (17:30)
[2016-10-12 17:50] VITALS: BP 110/63; PULSE 102; RESP 21
[2016-10-12 18:17] LABS: ABG Base Excess -10.4 mmol/L; ABG HCO3 15 mmol/L (21-25); ABG PCO2 31 mmHg (35-45); ABG PH 7.31 (7.35-7.45); ABG PO2 >400 mmHg (83-108); ABG TCO2 16 mmol/L (19-24)
--- NOTE | 2016-10-12 23:18 | P.PN ---
Subjective Principal diagnosis: altered mental status Pleasant 85-year-old female was brought by EMS from her home because of altered mental status. This pleasant woman lives with her it is usually quite active. The is also very helpful around the house. She is having some difficulties because of the onset of a bit of discomfort and rash to her left upper flank area. She was seen in the outpatient setting and was thought to have evidence of shingles and was begun on oral acyclovir as well as some [place] for pain control. After this she developed a significant change of her mental status. In because she was doing so poorly she was brought to Hospital by EMS. At admission there was evidence of high-grade fever and altered mental status. She was admitted to intensive care unit. her fever is now improved. Her mental status yesterday Was starting to improve but again rapidly deteriorated. She was brought back to the intensive care unit. She is available by her hospitalist was concerns to seizure activity. Which appears to be ongoing at this point in time. She's had a significant worsening of her status.family is present and are quite distraught by her markedly deterioration of her status Objective - Vital Signs Vital signs: Vital Signs Temp 98 F 10/12/16 16:00 Pulse 102 H 10/12/16 17:00 Resp 21 10/12/16 17:00 BP 110/63 10/12/16 17:00 Pulse Ox 99 10/12/16 17:00 Intake & Output 10/12/16 10/12/16 10/13/16 06:59 18:59 06:59 Intake Total 500 771.632 Output Total 1300 125 Balance -800 646.632 Intake: IV 600 0.9 nacl 600 Intake, IV Titration 51.632 Amount Morphine Sulfate 100 mg 1.632 In Sodium Chloride 0.9% 100 ml @ 1 MG/HR 1.02 mls /hr IV .Q24H STE[facility] Rx#: [id number] Valproate Sodium 500 mg 50 In Sodium Chloride 0.9% 50 ml @ 50 mls/hr IVPB Q8HR STEPH[facility] Rx#:[id number] Oral 500 120 Output: Urine 1300 125 Other: Voiding Method Indwelling Catheter Indwelling Catheter # Voids 0 # Bowel Movements 0 - Exam 85-year-old woman who supine and having abnormal motions of her oral cavity HEENT: Anicteric conjunctiva are pink and moist nasal mucosa grossly intact without significant lesions, there is no thrush. Neck: The neck is supple without significant lymphadenopathy or thyromegaly. Lungs: symmetrical air entry with loud upper airway gurgling due to her current mental statu Heart: Regular rate and rhythm with an audible S1-S2, no S3 no S4. There is no significant murmur click or rub, PMI was nondisplaced. Abdomen: Positive bowel sounds soft and nontender without palpable masses or organomegaly. There was no guarding or rebound. Extremities: The upper extremities have excellent pulses they are symmetric, no significant petechiae or telangiectasia. No splinter hemorrhages were noted. The lower extremities are free from significant edema. The peripheral pulses were 2+ and symmetric. Neuro: she is with eyes open but not responding , she's having some abnormal activity activityinvolving the head and neck as well as right upper extremityconcerning to ongoing seizure activity. - Labs CBC & Chem 7: 10/12/16 07:54 10/12/16 07:54 Labs: Abnormal Lab Results - Last 24 Hours (Table) 10/12/16 10/12/16 10/12/16 Range/Units 07:08 07:54 07:54 Neutrophils # 8.5 H (1.3-7.7) k/uL Lymphocytes # 0.6 L (1.0-4.8) k/uL ABG pH (7.35-7.45) ABG pCO2 (35-45) mmHg ABG pO2 (83-108) mmHg ABG HCO3 (21-25) mmol/L ABG Total CO2 (19-24) mmol/L ABG O2 Saturation (94-97) % Sodium 129 L (137-145) mmol/L Carbon Dioxide 15 L (22-30) mmol/L BUN 22 H (7-17) mg/dL Creatinine 1.80 H (0.52-1.04) mg/dL Glucose 115 H (74-99) mg/dL POC Glucose (mg/dL) 111 H (75-99) mg/dL Calcium 7.2 L (8.4-10.2) mg/dL 10/12/16 10/12/16 Range/Units 13:25 16:52 Neutrophils # (1.3-7.7) k/uL Lymphocytes # (1.0-4.8) k/uL ABG pH 7.31 L (7.35-7.45) ABG pCO2 26 L 31 L (35-45) mmHg ABG pO2 79 L >400 H (83-108) mmHg ABG HCO3 14 L 15 L (21-25) mmol/L ABG Total CO2 15 L 16 L (19-24) mmol/L ABG O2 Saturation 100.0 H (94-97) % Sodium (137-145) mmol/L Carbon Dioxide (22-30) mmol/L BUN (7-17) mg/dL Creatinine (0.52-1.04) mg/dL Glucose (74-99) mg/dL POC Glucose (mg/dL) (75-99) mg/dL Calcium (8.4-10.2) mg/dL Microbiology - Last 24 Hours (Table) 10/11/16 03:13 Urine Culture - Final Urine,Catheterized 10/11/16 06:40 CSF Gram Stain - Preliminary Cerebral Spinal Fluid CSF Culture - Preliminary Laboratory Results WBC 10.3 k/uL (3.8-10.6) 10/12/16 07:54 RBC 3.87 m/uL (3.80-5.40) 10/12/16 07:54 Hgb 11.8 gm/dL (11.4-16.0) 10/12/16 07:54 Hct 34.7 % (34.0-46.0) 10/12/16 07:54 MCV 89.5 fL (80.0-100.0) 10/12/16 07:54 MCH 30.5 pg (25.0-35.0) 10/12/16 07:54 MCHC 34.1 g/dL (31.0-37.0) 10/12/16 07:54 RDW 13.9 % (11.5-15.5) 10/12/16 07:54 Plt Count 256 k/uL (150-450) 10/12/16 07:54 Neutrophils % 82 % 10/12/16 07:54 Lymphocytes % 5 % 10/12/16 07:54 Monocytes % 10 % 10/12/16 07:54 Eosinophils % 0 % 10/12/16 07:54 Basophils % 0 % 10/12/16 07:54 Neutrophils # 8.5 k/uL (1.3-7.7) H 10/12/16 07:54 Lymphocytes # 0.6 k/uL (1.0-4.8) L 10/12/16 07:54 Monocytes # 1.0 k/uL (0-1.0) 10/12/16 07:54 Eosinophils # 0.0 k/uL (0-0.7) 10/12/16 07:54 Basophils # 0.0 k/uL (0-0.2) 10/12/16 07:54 PT 11.1 sec (9.0-12.0) 10/10/16 21:10 INR 1.1 (<1.1) 10/10/16 21:10 APTT 25.3 sec (22.0-30.0) 10/10/16 21:10 D-Dimer 1.29 mg/L FEU (<0.60) H 10/10/16 13:45 Sample Site [facility] 10/12/16 16:52 ABG pH 7.31 (7.35-7.45) L 10/12/16 16:52 ABG pCO2 31 mmHg (35-45) L 10/12/16 16:52 ABG pO2 >400 mmHg (83-108) H 10/12/16 16:52 ABG HCO3 15 mmol/L (21-25) L 10/12/16 16:52 ABG Total CO2 16 mmol/L (19-24) L 10/12/16 16:52 ABG O2 Saturation 100.0 % (94-97) H 10/12/16 16:52 ABG Base Excess -10.4 mmol/L 10/12/16 16:52 VBG pH 7.37 (7.31-7.41) 10/10/16 21:10 VBG pCO2 34 mmHg (37-51) L 10/10/16 21:10 VBG HCO3 19 mmol/L (24-28) L 10/10/16 21:10 FiO2 100 % 10/12/16 16:52 Sodium 129 mmol/L (137-145) L 10/12/16 07:54 Potassium 3.8 mmol/L (3.5-5.1) 10/12/16 07:54 Chloride 104 mmol/L (98-107) 10/12/16 07:54 Carbon Dioxide 15 mmol/L (22-30) L 10/12/16 07:54 Anion Gap 10 mmol/L 10/12/16 07:54 BUN 22 mg/dL (7-17) H 10/12/16 07:54 Creatinine 1.80 mg/dL (0.52-1.04) H 10/12/16 07:54 Est GFR (MDRD) Af Amer 32 (>60 ml/min/1.73 sqM) 10/12/16 07:54 Est GFR (MDRD) Non-Af 27 (>60 ml/min/1.73 sqM) 10/12/16 07:54 Glucose 115 mg/dL (74-99) H 10/12/16 07:54 POC Glucose (mg/dL) 111 mg/dL (75-99) H 10/12/16 07:08 POC Glu [employer] ID Denia Fuchs 10/12/16 07:08 Plasma Lactic Acid Tayo 0.7 mmol/L (0.7-2.0) 10/12/16 07:54 Calcium 7.2 mg/dL (8.4-10.2) L 10/12/16 07:54 Phosphorus 4.4 mg/dL (2.5-4.5) 10/12/16 07:54 Magnesium 2.2 mg/dL (1.6-2.3) 10/12/16 07:54 Total Bilirubin 0.5 mg/dL (0.2-1.3) 10/10/16 21:10 AST 31 U/L (14-36) 10/10/16 21:10 ALT 31 U/L (9-52) 10/10/16 21:10 Alkaline Phosphatase 55 U/L (38-126) 10/10/16 21:10 Total Creatine Kinase 576 U/L (30-135) H 10/11/16 08:42 CK-MB (CK-2) 9.5 ng/mL (0.0-2.4) H* 10/11/16 08:42 CK-MB (CK-2) Rel Index 1.6 10/11/16 08:42 Troponin I 0.069 ng/mL (0.000-0.034) H* 10/11/16 08:42 Total Protein 6.7 g/dL (6.3-8.2) 10/10/16 21:10 Albumin 3.5 g/dL (3.5-5.0) 10/10/16 21:10 TSH 3.950 mIU/L (0.465-4.680) 10/10/16 13:45 Cortisol 47 ug/dL 10/10/16 21:10 Urine Color Yellow 10/10/16 13:45 Urine Appearance Clear (Clear) 10/10/16 13:45 Urine pH 7.0 (5.0-8.0) 10/10/16 13:45 Ur Specific [place] 1.013 (1.001-1.035) 10/10/16 13:45 Urine Protein 2+ (Negative) H 10/10/16 13:45 Urine Glucose (UA) Negative (Negative) 10/10/16 13:45 Urine Ketones 2+ (Negative) H 10/10/16 13:45 Urine Blood Negative (Negative) 10/10/16 13:45 Urine Nitrate Negative (Negative) 10/10/16 13:45 Urine Bilirubin Negative (Negative) 10/10/16 13:45 Urine Urobilinogen <2.0 mg/dL (<2.0) 10/10/16 13:45 Ur Leukocyte Esterase Negative (Negative) 10/10/16 13:45 Urine WBC 1 /hpf (0-5) 10/10/16 13:45 Ur Squamous Epith Cells <1 /hpf (0-4) 10/10/16 13:45 Urine Mucus Rare /hpf (None) H 10/10/16 13:45 CSF Tube Number 4 10/11/16 06:40 CSF Volume 1.5 10/11/16 06:40 CSF Appearance Clear 10/11/16 06:40 CSF Color Colorless 10/11/16 06:40 CSF RBC 110 u/L (0-10) H 10/11/16 06:40 CSF Tot Nucleated Cells 3 u/L (0-5) 10/11/16 06:40 CSF Crenated Cells 2 % 10/11/16 06:40 CSF Fresh RBCs 98 % 10/11/16 06:40 CSF Glucose 80 mg/dL (40-70) H 10/11/16 06:40 CSF Total Protein 85 mg/dL (12-60) H 10/11/16 06:40 Salicylates <1.0 mg/dL 10/10/16 13:45 Urine Opiates Screen Detected (NotDetected) H 10/10/16 13:45 Ur Oxycodone Screen Not Detected (NotDetected) 10/10/16 13:45 Urine Methadone Screen Not Detected (NotDetected) 10/10/16 13:45 Ur Propoxyphene Screen Not Detected (NotDetected) 10/10/16 13:45 Acetaminophen <10.0 ug/mL 10/10/16 13:45 Ur Barbiturates Screen Not Detected (NotDetected) 10/10/16 13:45 U Tricyclic Antidepress Not Detected (NotDetected) 10/10/16 13:45 Ur Phencyclidine Scrn Not Detected (NotDetected) 10/10/16 13:45 Ur Amphetamines Screen Not Detected (NotDetected) 10/10/16 13:45 U Methamphetamines Scrn Not Detected (NotDetected) 10/10/16 13:45 U Benzodiazepines Scrn Not Detected (NotDetected) 10/10/16 13:45 Urine Cocaine Screen Not Detected (NotDetected) 10/10/16 13:45 U Marijuana (THC) Screen Not Detected (NotDetected) 10/10/16 13:45 Influenza Type A RNA Not Detected (Not Detectd) 10/10/16 21:17 Influenza Type B (PCR) Not Detected (Not Detectd) 10/10/16 21:17 Microbiology 10/10/16 19:30 Blood Blood Culture - Preliminary No Growth after 48 hours 10/11/16 03:13 Urine,Catheterized Urine Culture - Final 10/11/16 06:40 Cerebral Spinal Fluid CSF Gram Stain - Preliminary 10/11/16 06:40 Cerebral Spinal Fluid CSF Culture - Preliminary 10/11/16 06:40 Cerebral Spinal Fluid Fungal Culture - Preliminary Assessment and Plan (1) Varicella zoster Narrative/Plan: 85-year-old female presents to Hospital of altered mental status. She normally is highly functional with her elderly in their home. She has a recent history of varicella-zoster on the left flank. Treated with antiviral therapy and some pain control. Her presentation she had marked the altered mental status. Is now considerably improved. Lumbar puncture looks modestly normal. But there was elevated protein. MRI is been performed which is normal. 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 Intravenous acyclovir will continue. Does not appear to have other significant bacterial infection at this point in time. And other antibiotic therapy may be discontinued at this time. The cerebral spinal fluid has been sent to the laboratory for PCR for herpesvirus. 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 Status: Acute (2) Acute metabolic encephalopathy Status: Acute (3) Fever Status: Acute
[2016-10-13] MEDS ORDERED: VALPROATE SODIUM 500 MG in SODIUM CHLORIDE 0.9% 50 ML IVPB SCH ×2
[2016-10-13] MEDS ORDERED: ACYCLOVIR SODIUM IVPB SCH ×2 (01:00→06:50)
[2016-10-13] MEDS ORDERED: SODIUM CHLORIDE 0.9% IVPB SCH ×2 (01:00→06:50)
[2016-10-13] MEDS: ACYCLOVIR SODIUM IV SCH (06:14)
[2016-10-13] MEDS: SODIUM CHLORIDE 0.9% IV SCH (06:14)
--- NOTE | 2016-10-13 11:08 | PN ---
DATE OF SERVICE: 10/12/2016 This 85-year-old woman was admitted with episodes of herpes, had change in mental status and possible also. The patient showed some initial improvement, but today the patient is more confused and the patient also had spastic movement in nature of the right upper limb and also deviation of the eyes to the right with significant diminished responsiveness. Lasted for several minutes indicating focal seizure. After this subsequently the patient is found to be dysarthric. The patient is transferred to ICU, being closely monitored at this time. Patient also had hypoxia, needed BiPAP. Dr. Rdz, Dr. Dean and multiple consultants following the patient closely. CAT scan of the brain was repeated. Past medical history and review of systems were not taken because of change in mental status. MEDICATIONS: Reviewed and include: 1. Acyclovir. 2. Albuterol. 3. Rocephin. 4. Hydralazine. 5. Atrovent. 6. Ativan. PHYSICAL EXAM: Patient is alert. Patient is confused about . Temperature is 98, pulse ox 90% on BiPAP. HEENT: Conjunctivae normal. .. NECK: No jugular venous distention. No carotid bruit therapy. CARDIOVASCULAR: S1 and S2, muffled. RESPIRATORY: Breath sounds diminished at the bases. A few scattered rhonchi and crackles. ABDOMEN: Soft, nontender. No mass palpable. LEGS: No edema, no swelling. NERVOUS SYSTEM: Patient could not tested. LABS: WBC within normal limits. Sodium 129, potassium 3.8. ASSESSMENT: 1. Fever with possible sepsis and encephalitis. 2. Change in mental status, metabolic toxic encephalopathy, secondary to her herpes simplex encephalitis and meningeal encephalitis. 3. 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 4. Herpes zoster, acute, left D4 dermatome. 5. Hypomagnesemia. 6. Increased WBC. 7. Acute respiratory alkalosis. 8. Acute hypoxic respiratory failure, multifactorial. 9. Hyponatremia. 10. Hypochloremia. 11. Increased random blood sugar. 12. Obesity. 13. Troponin 0.05, indeterminate. 14. Recent chest pain. 15. Asthma and COPD. 16. Hypertension. 17. DJD. 18. History of sleep apnea. 20. History of motion sickness. 21. NO CODE, NO CPR, NO VENT. RECOMMENDATIONS AND DISCUSSION: In this 85-year-old woman who presented with multiple complex medical issues, will monitor the patient closely, continue the current medication, continue with BiPAP. The patient is no code at this time. Detailed discussion with the family at the bedside. continue antiviral. Closely follow with neurology in the ICU, Dr. Rdz as well as Dr. Dean. Prognosis guarded. Further recommendations to follow. MTDD
--- NOTE | 2016-10-13 15:12 | DS ---
DATE OF ADMISSION: 10/10/2016 DATE OF DISCHARGE: 10/13/2016 PRIMARY CAUSE OF : Acute toxic metabolic encephalopathy possible secondary to herpes simplex encephalitis and meningeal encephalitis. OTHER DIAGNOSES: 1. Fever with possible sepsis present on admission. 2. Focal seizures, secondary to encephalitis. 3. Herpes zoster D4 dermatome. 4. Hypomagnesemia. 5. Increased WBC. 6. Acute respiratory alkalosis. 7. Acute hypoxic respiratory failure, multifactorial, present on admission. 8. Hyponatremia. 9. Hypochloremia. 10. Increased random blood sugar. 11. Obesity. 12. Troponin 0.04, indeterminate. 13. History of chest pain. 14. Asthma. 15. Chronic obstructive pulmonary disease. 16. Hypertension. 17. Degenerative joint disease. 18. Sleep apnea. 19. History of motion sickness. 20. NO CODE, NO CPR, NO VENT. 21. Comfort measures. HISTORY OF PRESENT ILLNESS: This 85-year-old woman with a past medical history of multiple medical problems as mentioned earlier being followed by Dr. Hipolito Wallace in the outpatient setting, was admitted with change in mental status and possibly herpes simplex encephalitis. The patient treated, symptomatic antivirals were given. Initially patient made some improvement. Subsequently patient developed focal seizures and change in mental status. The patient was monitored in the ICU again. The patient also became severely hypoxic and the family preferred not to go with CPR or vent per the patient's previously declared clear wishes. Comfort measures were pursued and the patient due to the above-mentioned multiple complex medical issues. Prognosis once again extremely guarded throughout the hospital stay. The patient was seen by multiple consults including Dr. Howard. Dr. Hua, Dr. Dean and Dr. Rdz during the hospitalization. Please refer to their particular dictation for further information. [facility]
[2016-10-14] MEDS ORDERED: ACYCLOVIR SODIUM IV SCH (01:00)
[2016-10-14] MEDS ORDERED: SODIUM CHLORIDE 0.9% IV SCH (01:00)
[2016-10-27 15:37] LABS: Mis test requested (Non-blood) CRYPTOCOCCAL AG CSF
== END 2016-10-13 14:30 | disposition expired | DRG 94 ==
LOC: EC 13:29 → 6ICU 21:11 → 4MS4W 10-11 13:25 → 6ICU 10-12 12:23 → 5ONC 10-12 18:35 → 5MS5E 10-12 18:36
PROVIDERS: ADMIT Hospitalist; ATTEND Hospitalist
PROC: 0T9B70Z Drainage of Bladder with Drainage Device, Via Natural or Artificial Opening (ICD-10-PCS; principal; 2016-10-10)
PROC: 009U3ZX Drainage of Spinal Canal, Percutaneous Approach, Diagnostic (ICD-10-PCS; 2016-10-11)
DX: A39.81 Meningococcal encephalitis (principal); B00.4 Herpesviral encephalitis; J96.01 Acute respiratory failure with hypoxia; E87.2 Acidosis; G00.9 Bacterial meningitis, unspecified; E87.3 Alkalosis; B02.0 Zoster encephalitis; F05 Delirium due to known physiological condition; E87.1 Hypo-osmolality and hyponatremia; G40.89 Other seizures; E83.42 Hypomagnesemia; I08.0 Rheumatic disorders of both mitral and aortic valves; G92 Toxic encephalopathy; Z66 Do not resuscitate; Z51.5 Encounter for palliative care; E86.1 Hypovolemia; J44.9 Chronic obstructive pulmonary disease, unspecified; J45.909 Unspecified asthma, uncomplicated; I10 Essential (primary) hypertension; E87.8 Other disorders of electrolyte and fluid balance, not elsewhere classified; H35.30 Unspecified macular degeneration; G47.33 Obstructive sleep apnea (adult) (pediatric); R47.1 Dysarthria and anarthria; D72.829 Elevated white blood cell count, unspecified; I67.9 Cerebrovascular disease, unspecified; F41.9 Anxiety disorder, unspecified; R73.09 Other abnormal glucose; E89.0 Postprocedural hypothyroidism; R94.4 Abnormal results of kidney function studies; R74.8 Abnormal levels of other serum enzymes; M19.90 Unspecified osteoarthritis, unspecified site; R00.0 Tachycardia, unspecified; Z91.011 Allergy to milk products; Z91.013 Allergy to seafood; Z98.49 Cataract extraction status, unspecified eye; Z96.653 Presence of artificial knee joint, bilateral; Z80.1 Family history of malignant neoplasm of trachea, bronchus and lung; Z82.49 Family history of ischemic heart disease and other diseases of the circulatory system; Z80.7 Family history of other malignant neoplasms of lymphoid, hematopoietic and related tissues; Z87.440 Personal history of urinary (tract) infections; Z91.018 Allergy to other foods; Z91.048 Other nonmedicinal substance allergy status; Z80.49 Family history of malignant neoplasm of other genital organs; Z96.641 Presence of right artificial hip joint; Z79.1 Long term (current) use of non-steroidal anti-inflammatories (NSAID); Z79.51 Long term (current) use of inhaled steroids; Z79.899 Other long term (current) drug therapy; Z78.1 Physical restraint status
CPT/HCPCS: 36415; 36600; 70450; 70553; 71010; 71275; 80048; 80053; 80300; 81001; 82533; 82550; 82553; 82803; 82805; 82945; 83520; 83605; 83735; 84100; 84157; 84443; 84484; 85025; 85379; 85610; 85730; 86403; 87040; 87070; 87086; 87102; 87205; 87502; 87529; 88108; 89050; 93005; 94640; 94660; 96365; 96367; 96375; 96376; 99212; 99291